=== PATIENT | male | born 1990 | race Caucasian/White ===

== ENCOUNTER 2019-06-21 08:23 | Inpatient (IN) | payer SELFPAY ==
[2019-06-21] VITALS (29 sets, daily range): BP systolic 101–143; BP diastolic 58–95
[~2019-06-21] VITALS: Ht 190.5 cm; Wt 72.6 kg
--- NOTE | 2019-06-21 08:29 | NUR ---
Ambulatory from registration to ED Rm 01. See nursing triage. Pt describing he feels he has "arrhythmia". Pt states he had this feeling before and Dr Edwards could not identify as unable to record via 24 hour Holter monitor. Pt denies use of recreational drugs. No alcohol reported today. Occasional beer is hx. Pt was asked further questions about stimulants, caffeine or any habits. Pt reports he drinks energy drink "Venom" on the days he works but none today. Significant other reports he pretty much drinks tea not plain water. No N/V reported. Pt has not ate today since arising. Pt has missed work.
--- NOTE | 2019-06-21 08:30 | NUR ---
EKG performed. Pt reports feeling heart pounding and irregular beats. Denies CP but feels weak, dizzy, and SOA upon entering ER after ambulation. EKG: Atrial Fib Rate 122.
--- OUTSIDE RECORDS SUMMARY | 2019-06-21 08:31 | XMS REPORT ---
Author Author JENNIFERTIMOTHY VERONICA [facility] Address Unknown Care Team Providers Care Energy Consultant Name Role Phone VERONICA KIMBALL Unavailable PROBLEMS Unknown Problems ALLERGIES No Known Allergies ENCOUNTERS Encounter Location Date Diagnosis [facility] [address] [id number] [place], [place] [id number] May, Dental examination Z01.20 and Dental caries K02.9 IMMUNIZATIONS No Known Immunizations SOCIAL HISTORY Never Assessed REASON FOR VISIT ABDULLAHI PLAN OF CARE Activity Details Follow Up prn Reason:viki VITAL SIGNS MEDICATIONS Unknown Medications RESULTS No Results PROCEDURES Procedure Date Ordered Result Body Site LTD ORAL EVALUATION - PROBLEM FOCUS June 11, 2018 INTRAORL-PERIAPICAL 1 FILM [id number] June 11, 2018 EXTRAC ERUPTED TOOTH/EXPOSED ROOT June 11, 2018 PANORAMIC FILM SEE ALSO CODE [id number] June 11, 2018 INSTRUCTIONS MEDICATIONS ADMINISTERED No Known Medications MEDICAL (GENERAL) HISTORY Type Description Date Medical History Heart Murmur
[2019-06-21] MEDS ORDERED: NS IV 1000 ML 1,000 ML ONE (08:52)
[2019-06-21] MEDS ORDERED: DILTIAZEM 25 MG/5 ML INJ (CARDIZEM) VIAL IVP ONE (09:00)
[2019-06-21] MEDS ORDERED: NS IV 1000 ML 1,000 ML IV SCH (09:00)
[2019-06-21] MEDS ORDERED: DILTIAZEM IV FOR DRIP 125 MG in NS (IVPB) 100 ML IV SCH (09:00)
--- NOTE | 2019-06-21 09:00 | NUR ---
Reported NIBP 101/73 with irregular A Fib rate 107-[address] Rico. Pt has not yet been given Cardizem bolus ordered.
--- NOTE | 2019-06-21 09:05 | NUR ---
NS [address] Rico ordered.
--- NOTE | 2019-06-21 09:10 | NUR ---
Cardizem 10 mg SIVP given as confirmed with Dr Rico. HR 111, NIBP 123/90.
--- NOTE | 2019-06-21 09:13 | Diagnostic Imaging Report ---
INDICATION: Shortness of breath and dizziness Frontal chest obtained at 8:42 a.m. Heart and mediastinal silhouette are normal in appearance. The lungs are clear. There is no pneumothorax or pleural fluid. IMPRESSION: No acute process in the chest. Dictated by: Dictated on workstation # [id number]
--- NOTE | 2019-06-21 09:14 | NUR ---
Cardizem drip began at 5mg/hr.
[2019-06-21 09:17] LABS: HEMATOCRIT 51 % (40-54); HEMOGLOBIN 18.3 G/DL (13.3-17.7); MEAN CORPUSCULAR HEMOGLOBIN 31 PG (25-34); WHITE BLOOD COUNT 8.7 10^3/uL (4.3-11.0)
[2019-06-21 09:18] LABS: MEAN CORPUSCULAR HGB CONC 36 G/DL (32-36); MEAN CORPUSCULAR VOLUME 87 FL (80-99); MEAN PLATELET VOLUME 10.2 FL (7.4-10.4); PLATELET COUNT 205 10^3/uL (130-400); RED CELL DISTRIBUTION WIDTH 12.7 % (10.0-14.5)
[2019-06-21 09:19] LABS: BAND NEUTROPHILS 1 %; BASOPHILS % (MANUAL) 0 %; EOSINOPHILS % (MANUAL) 1 %; LYMPHOCYTES % (MANUAL) 42 %; MONOCYTES % (MANUAL) 9 %; NEUTROPHILS % (MANUAL) 47 %
[2019-06-21 09:22] LABS: BUN/CREATININE RATIO 9; CALCIUM 9.8 MG/DL (8.5-10.1); CARBON DIOXIDE 24 MMOL/L (21-32); CHLORIDE 100 MMOL/L (98-107); CREATININE SERUM 1.13 MG/DL (0.60-1.30); GFR ESTIMATED > 60; GLUCOSE 101 MG/DL (70-105); MAGNESIUM 2.1 MG/DL (1.8-2.4); POTASSIUM 4.3 MMOL/L (3.6-5.0); SODIUM 139 MMOL/L (135-145)
[2019-06-21 09:23] LABS: ALANINE AMINOTRANSFERASE 19 U/L (0-55); ALBUMIN 4.7 GM/DL (3.2-4.5); ALKALINE PHOSPHATASE 82 U/L (40-136); TOTAL PROTEIN 7.7 GM/DL (6.4-8.2)
--- NOTE | 2019-06-21 09:25 | NUR ---
Pt unable to void lying down, assisted up at bedside to use urinal to void. During minimal bedside activity RN present and note patient increased A Fib rate up to 147 with minimal activity. Pt reports alittle dizzy with activity and feeling SOA.
--- NOTE | 2019-06-21 09:30 | NUR ---
Pt was assited back to bed after 3 minutes being up and immediate resting rate drops to A Fib rate 80's with trigeminal unifocal PVC's. NIBP 123/79
[2019-06-21 09:51] LABS: AMPHETAMINE SCREEN, URINE NEGATIVE (NEGATIVE); BARBITURATE SCREEN URINE NEGATIVE (NEGATIVE); BENZODIAZEPINES SCREEN URINE NEGATIVE (NEGATIVE); CANNABINOID SCREEN, URINE NEGATIVE (NEGATIVE); COCAINE SCREEN URINE NEGATIVE (NEGATIVE); METHADONE STAT NEGATIVE (NEGATIVE); METHAMPHETAMINE SCREEN URINE S NEGATIVE (NEGATIVE); OPIATE SCREEN URINE NEGATIVE (NEGATIVE); OXYCODONE STAT NEGATIVE (NEGATIVE); PROPOXYPHENE STAT NEGATIVE (NEGATIVE); TRICYCLIC ANTIDEPRESSANTS SCRE NEGATIVE (NEGATIVE)
--- NOTE | 2019-06-21 10:29 | ED Cardiac General ---
History of Present Illness General Chief Complaint: Cardiac/General Problems Stated Complaint: SOB; ARRHYTHMIA Nursing Triage Note: Pt ambulatory to ED reporting dizziness/weakness and heart arrhythmia. Pt denies CP but feels heart pounding in chest. Pt missed work today r/t to this. Pt hx of similar event but holter monitor did not identify cause for his PCP. Pt denies recreational drugs and an occas beer drank. Pt drinks "Venom" Energy drinks on days he works. Source: patient Exam Limitations: no limitations History of Present Illness Date Seen by Provider: Jun 21, 2019 Time Seen by Provider: 08:30 Initial Comments Patient is a 28-year-old male who presents with dizziness, generalized weakness, fatigue and palpitations. Symptom onset was this morning. Patient denies chest pain but feels pounding in his chest. Also reports mild dyspnea. No fever chills, cough, sore throat. No nausea, vomiting or abdominal pain. No leg pain or swelling. Patient states he has had similar episodes of dizziness with palpitations but has never sought medical care. No other acute symptoms or complaints. Denies drugs and alcohol. Timing/Duration: 1-3 hours Severity: moderate Prior CP/Workup: no prior chest pain Associated Systoms: Denies Symptoms, Weakness Allergies and Home Medications Allergies Coded Allergies: No Known Drug Allergies (Unverified , 06/21/19) Home Medications No Active Prescriptions or Reported Meds Patient Home Medication List Home Medication List Reviewed: Yes Review of Systems Review of Systems Constitutional: dizziness, weakness EENTM: No Symptoms Reported Respiratory: Shortness of Air Cardiovascular: Denies Chest Pain; Irregular Heart Rate, Palpitations Gastrointestinal: No Symptoms Reported, See HPI Genitourinary: No Symptoms Reported, See HPI Musculoskeletal: no symptoms reported, see HPI Skin: no symptoms reported, see HPI Psychiatric/Neurological: No Symptoms Reported, See HPI, Anxiety Endocrine: No Symptoms Reported Hematologic/Lymphatic: No Symptoms Reported All Other Systems Reviewed Negative Unless Noted: Yes Past Zenxdhs-Gbspyb-Xlahdz Hx Patient Social History Alcohol Use: Occasionally Uses Number of Drinks Today: 0 Alcohol Beverage of Choice: Beer Recreational Drug Use: No (denies) Smoking Status: Never a Smoker 2nd Hand Smoke Exposure: Yes (pt reeks of smoke odor denies being a smoker) Recent Foreign Travel: No Contact w/Someone Who Travel: No Recent Infectious Disease Expo: No Recent Hopitalizations: No Physical Abuse: No Sexual Abuse: No Mistreated: No Fear: No Seasonal Allergies Seasonal Allergies: No Past Medical History Surgeries: No Respiratory: No Cardiac: No (reports having had arrhythmia hx "heart pounding" in past) Irregular Heartbeat Neurological: No Genitourinary: No Gastrointestinal: No Musculoskeletal: No Endocrine: No HEENT: No Cancer: No Psychosocial: No (denies) Integumentary: No Blood Disorders: No Physical Exam Vital Signs Vital Signs - First Documented 06/21/19 08:29 Temp 98.2 Pulse 105 Resp 16 B/P (MAP) 123/85 (98) Pulse Ox 100 O2 Delivery Room Air Capillary Refill : Less Than 3 Seconds Height, Weight, BMI Height: 6'3.00" Weight: 160lbs. oz. 72.770948on; BMI Method:Stated General Appearance: No Apparent Distress, WD/WN HEENT: PERRL/EOMI, TMs Normal Neck: Supple Respiratory: Chest Non Tender, Lungs Clear, Normal Breath Sounds Cardiovascular: No Edema Gastrointestinal: Non Tender, Soft Neurologic/Psychiatric: Alert, Oriented x3, No Motor/Sensory Deficits Skin: Normal Color Focused Exam Sepsis Stage: Ruled Out Progress/Results/Core Measures Results/Orders Lab Results Laboratory Tests Test 06/21/19 08:40 06/21/19 09:25 Range/Units White Blood Count 8.7 4.3-11.0 10^3/uL Red Blood Count 5.89 H 4.35-5.85 10^6/uL Hemoglobin 18.3 H 13.3-17.7 G/DL Hematocrit 51 40-54 % Mean Corpuscular Volume 87 80-99 FL Mean Corpuscular Hemoglobin 31 25-34 PG Mean Corpuscular Hemoglobin Concent 36 32-36 G/DL Red Cell Distribution Width 12.7 10.0-14.5 % Platelet Count 205 130-400 10^3/uL Mean Platelet Volume 10.2 7.4-10.4 FL Neutrophils (%) (Auto) 42-75 % Lymphocytes (%) (Auto) 12-44 % Monocytes (%) (Auto) 0-12 % Eosinophils (%) (Auto) 0-10 % Basophils (%) (Auto) 0-10 % Neutrophils # (Auto) 1.8-7.8 X 10^3 Lymphocytes # (Auto) 1.0-4.0 X 10^3 Monocytes # (Auto) 0.0-1.0 X 10^3 Eosinophils # (Auto) 0.0-0.3 10^3/uL Basophils # (Auto) 0.0-0.1 10^3/uL Neutrophils % (Manual) 47 % Lymphocytes % (Manual) 42 % Monocytes % (Manual) 9 % Eosinophils % (Manual) 1 % Basophils % (Manual) 0 % Band Neutrophils 1 % Sodium Level 139 135-145 MMOL/L Potassium Level 4.3 3.6-5.0 MMOL/L Chloride Level 100 98-107 MMOL/L Carbon Dioxide Level 24 21-32 MMOL/L Anion Gap 15 H 5-14 MMOL/L Blood Urea Nitrogen 10 7-18 MG/DL Creatinine 1.13 0.60-1.30 MG/DL Estimat Glomerular Filtration Rate > 60 BUN/Creatinine Ratio 9 Glucose Level 101 70-105 MG/DL Calcium Level 9.8 8.5-10.1 MG/DL Corrected Calcium 8.5-10.1 MG/DL Magnesium Level 2.1 1.8-2.4 MG/DL Total Bilirubin 1.0 0.1-1.0 MG/DL Aspartate Amino Transf (AST/SGOT) 25 5-34 U/L Alanine Aminotransferase (ALT/SGPT) 19 0-55 U/L Alkaline Phosphatase 82 40-136 U/L Troponin I < 0.30 <0.30 NG/ML Pro-B-Type Natriuretic Peptide 215.0 H <75.0 PG/ML Total Protein 7.7 6.4-8.2 GM/DL Albumin 4.7 H 3.2-4.5 GM/DL Serum Alcohol < 10 <10 MG/DL Urine Opiates Screen NEGATIVE NEGATIVE Urine Oxycodone Screen NEGATIVE NEGATIVE Urine Methadone Screen NEGATIVE NEGATIVE Urine Propoxyphene Screen NEGATIVE NEGATIVE Urine Barbiturates Screen NEGATIVE NEGATIVE Ur Tricyclic Antidepressants Screen NEGATIVE NEGATIVE Urine Phencyclidine Screen NEGATIVE NEGATIVE Urine Amphetamines Screen NEGATIVE NEGATIVE Urine Methamphetamines Screen NEGATIVE NEGATIVE Urine Benzodiazepines Screen NEGATIVE NEGATIVE Urine Cocaine Screen NEGATIVE NEGATIVE Urine Cannabinoids Screen NEGATIVE NEGATIVE My Orders Orders - MARIA LUZ REYNOSO DO Cbc And Manual Diff (06/21/19 08:39) Comprehensive Metabolic Panel (06/21/19 08:39) Troponin I (06/21/19 08:39) Magnesium (06/21/19 08:39) Alcohol (06/21/19 08:39) Drug Screen Stat (Urine) (06/21/19 08:39) Probnp Fs (06/21/19 08:39) Chest 1 View Ap/Pa Only (06/21/19 08:39) Diltiazem Injection (Cardizem Injection) (06/21/19 09:00) Ns (Ivpb) (Sodium C... W/Diltiazem Iv Fo (06/21/19 09:00) Thyroid Stimulating Hormone (06/21/19 08:40) Ns Iv 1000 Ml (Sodium Chloride 0.9%) (06/21/19 09:00) Ns Iv 1000 Ml (Sodium Chloride 0.9%) (06/21/19 08:52) Amiodarone For Bolus (Cordarone Bolus) (06/21/19 10:30) Amiodarone Injection (Cordarone Injectio (06/21/19 10:30) Apixaban Tablet (Eliquis Tablet) (06/21/19 10:30) Medications Given in ED Current Medications Medications Dose Ordered Sig/Malcolm Route Start Time Stop Time Status Last Admin Dose Admin Diltiazem HCl 10 mg ONCE ONCE IVP 06/21/19 09:00 06/21/19 09:01 DC 06/21/19 09:10 10 MG Vital Signs/I&O 06/21/19 06/21/19 08:29 09:14 Temp 98.2 98.2 Pulse 105 108 Resp 16 18 B/P (MAP) 123/85 (98) 123/85 Pulse Ox 100 100 O2 Delivery Room Air Room Air Blood Pressure Mean: 98 Departure Communication (Admissions) Time/Spoke to Admitting Phy: 10:37 Dr. Sandra Impression Primary Impression: Atrial fibrillation Disposition: 09 ADMITTED INPATIENT Condition: Stable Admissions Decision to Admit Reason: Admit from ER (General) Decision to Admit/Date: Jun 21, 2019 Time/Decision to Admit Time: 10:00 Transfer Time Spoke to Accepting Phy: 10:15 Departure-Patient Inst. Referrals: NO,LOCAL PHYSICIAN (PCP/Family) Primary Care Physician Patient Instructions: Palpitations (DC), Atrial Fibrillation (DC) Scripts No Active Prescriptions or Reported Meds MARIA LUZ REYNOSO DO Jun 21, 2019 10:29
[2019-06-21] MEDS ORDERED: AMIODARONE FOR BOLUS 150 MG in D5W 100 ML IVPB 100 ML IV ONE (10:30)
[2019-06-21] MEDS ORDERED: APIXABAN 5 MG (ELIQUIS) TABLET PO ONE (10:30)
--- NOTE | 2019-06-21 10:35 | NUR ---
Stopped/held Cardizem. New order rec'd. HR A Fib 90's, ocas to upper 80's. NIBP 118/81.
--- NOTE | 2019-06-21 10:38 | NUR ---
Amiodarone 150 mg/D5W 100 ml bolus began per Malone pump at 600 ml/hr as per protocol per verbal order Dr Rico.
--- NOTE | 2019-06-21 10:39 | NUR ---
JUSTIN, [employer] CALLED FOR BED REQUEST AT THIS TIME.
--- NOTE | 2019-06-21 10:48 | NUR ---
Amiodarone bolus is completed. Pt HR mid 80's. Pt remains normotensive.
[2019-06-21] MEDS: AMIODARONE INJECTION 450 MG in D5W IV SOLUTION (EXCEL) 250 ML IV SCH ×2 (10:50→17:05)
--- NOTE | 2019-06-21 10:50 | NUR ---
Amiodarone drip began per protocol starting 33 ml/hr for first 8 hrs.
--- NOTE | 2019-06-21 10:59 | NUR ---
Room number obtained. CU 9
--- NOTE | 2019-06-21 11:05 | NUR ---
Attempt to call report and RN is busy, request return call to this RN.
--- NOTE | 2019-06-21 11:20 | NUR ---
Report called to Akosua [place] at [facility] ICU. [facility] is arriving.
--- NOTE | 2019-06-21 11:30 | NUR ---
Pt departing from [facility]- ER at this time on Amiodarone drip infusing at 33 ml/hr without difficulty (24 ml infused). Cardizem drip bag off and given to [facility] for transport. Pt resting HR is low 70's now. No verbalized c/o's except hunger but patient remains NPO. Cardiac monitoring was resumed with EMS ACLS crew.
[2019-06-21] MEDS ORDERED: CATHETER FLUSH 10 ML SYR IV PRN (12:30)
[2019-06-21] MEDS ORDERED: D5W 1000 ML IV SOLUTION 1,000 ML IV SCH (12:30)
--- NOTE | 2019-06-21 14:15 | Consultation-Cardiology ---
HPI-Cardiology Cardiology Consultation: Date of Consultation 06/21/19 Date of Admission Attending Physician Gail Sandra MD Admitting Physician No,Local Physician Consulting Physician Zak ELIZABETH MD HPI: Time Seen by a Provider: 12:00 Chief Complaint: Atrial fibrillation with rapid ventricular rate. This is a 28-year-old gentleman with no past cardiac history. He does tells me that he's had a regular heart beating in the past. He presented with dizziness, weakness and palpitations. Symptoms started this morning. He presented to the [place] ER and was found to be in atrial fibrillation with rapid ventricular rate. The patient denies any significant medical history. He denies use of any street drugs. He does except that he drinks a lot of energy drinks. He does not know of his family history. He does not smoke. Review of Systems-Cardiology Review of Systems Constitutional: As described under HPI; No As described under HPI, No no symptoms reported, No chills, No fever; lightheadedness Eyes: No As described under HPI, No no symptoms reported, No blindness, No blurred vision, No contact lenses, No drainage, No decreased acuity, No foreign body sensation, No pain, No vision change Ears/Nose/Throat: No As described under HPI, No no symptoms reported, No chronic hearing loss, No ear discharge, No ear pain, No nasal drainage, No ulcerations Respiratory: No no symptoms reported; As described under HPI; No As described under HPI, No cough, No orthopnea; shortness of breath; No SOB with excertion Cardiovascular: No no symptoms reported; As described under HPI; No As described under HPI, No chest pain, No edema, No irregular heart rate, No lightheadedness; palpitations Gastrointestinal: No no symptoms reported, No As described under HPI, No abdomen distended, No abdominal pain, No blood streaked bowels, No constipation, No diarrhea, No nausea, No vomiting, No stool coloration changes Genitourinary: No As described under HPI, No burning, No dysuria, No discharge, No frequency, No flank pain, No hematuria, No urgency Skin: No rash, No skin related problems, No ulcerations Psychiatric/Neurological: No anxiety, No depression, No seizure, No focal weakness, No syncope Hematologic: No bleeding abnormalities All Other Systems Reviewed Negative Unless Noted: Yes MZY-Thaoae-Viiptx Hx Patient Social History Alcohol Use: Occasionally Uses Recreational Drug Use: No (denies) Smoking Status: Never a Smoker 2nd Hand Smoke Exposure: Yes (pt reeks of smoke odor denies being a smoker) Recent Foreign Travel: No Recent Infectious Disease Expo: No Past Medical History PMH As described under Assessment. Allergies and Home Medications Allergies Coded Allergies: No Known Drug Allergies (Unverified , 06/21/19) Home Medications No Active Prescriptions or Reported Meds Patient Home Medication List Home Medication List Reviewed: Yes Physical Exam-Cardiology Physical Exam Vital Signs/I&O 06/21/19 06/21/19 06/21/19 06/21/19 09:00 09:08 09:10 09:12 Pulse 107 86 98 107 Resp 14 20 15 18 B/P (MAP) 101/73 (82) 126/76 (93) 123/90 (101) 102/75 (84) Pulse Ox 100 100 100 100 O2 Delivery Room Air Room Air Room Air Room Air 06/21/19 06/21/19 06/21/19 06/21/19 09:14 09:27 09:30 09:45 Temp 98.2 Pulse 108 147 118 80 Resp 18 22 14 15 B/P (MAP) 123/85 101/70 (80) 123/79 (94) 124/76 (92) Pulse Ox 100 100 100 100 O2 Delivery Room Air Room Air Room Air Room Air 06/21/19 06/21/19 06/21/19 06/21/19 10:00 10:30 11:00 11:30 Temp 98.0 Pulse 77 92 73 74 Resp 14 13 17 15 B/P (MAP) 125/83 (97) 118/81 (93) 117/85 (96) 128/83 (98) Pulse Ox 100 100 100 100 O2 Delivery Room Air Room Air Room Air Room Air 06/21/19 06/21/19 06/21/19 06/21/19 11:30 12:25 12:30 12:30 Temp 98.0 Pulse 74 74 75 75 Resp 15 10 10 B/P (MAP) 128/83 (98) 131/95 (107) 131/95 (107) Pulse Ox 100 99 99 O2 Delivery Room Air Room Air Room Air 06/21/19 06/21/19 06/21/19 06/21/19 12:45 12:45 13:00 13:15 Pulse 79 79 80 80 Resp 14 14 8 8 B/P (MAP) 119/95 (103) 121/84 (96) 112/73 (86) 116/84 (95) Pulse Ox 100 100 99 100 O2 Delivery Room Air Room Air Room Air Room Air 06/21/19 06/21/19 06/21/19 06/21/19 13:30 13:47 14:00 14:30 Pulse 74 96 102 Resp 16 12 8 B/P (MAP) 129/84 (99) 135/93 (107) 143/93 (110) Pulse Ox 99 100 99 O2 Delivery Room Air Room Air Room Air Room Air 06/21/19 06/21/19 06/21/19 06/21/19 15:00 16:00 16:00 16:05 Temp 98.0 Pulse 97 92 56 Resp 35 20 B/P (MAP) 129/78 (95) 122/80 (94) Pulse Ox 100 99 O2 Delivery Room Air Room Air 06/21/19 06/21/19 06/21/19 16:19 17:00 18:00 Pulse 51 50 Resp 17 21 B/P (MAP) 113/74 (87) 120/79 (93) Pulse Ox 99 100 O2 Delivery Room Air Room Air Room Air Capillary Refill : Less Than 3 Seconds Constitutional: appears stated age, AAO x 3; No apparent distress; well- developed, well-nourished HEENT: PERRL; No normal ENT inspection, No TMs normal, No pharynx normal, No scleral icterus (R), No scleral icterus (L), No pale conjunctivae (R), No pale conjunctivae (L), No photophobia, No TM abnormal (R), No TM abnormal (L), No pharyngeal erythema, No tonsillar exudate, No other, No discharge, No EOMI; hearing is well preserved; No hard of hearing; oral hygience is good; No ulceration, No xanthelasmas are seen Neck: No non-tender, No full range of motion, No supple, No normal inspection, No carotid bruit, No limited range of motion, No lymphadenopathy (R), No lymphadenopathy (L), No tender lateral, No tender midline, No thyromegaly, No other; carotid pulses are 2 + bilaterally; No with good upstrokes Respiratory: No accessory muscle use, No respiratory distress, No chest tender, No chest expansion is symmetric; chest is bilaterally symmetric; No lungs clear to percussion; lungs clear to auscultation; No crackles, No rhonchi, No rales, No stridor, No wheezing, No pleural rub, No other Cardiovascular: No regular rate-rhythm; irregularly irregular; No extra beats, No parasternal heave is noted, No JVD, No edema, No bradycardia; tachycardia; No point of maximal impulse, No cardiac thrills are palpable; S1 and S2; No ga llop/S3, No gallop/S4, No diastolic murmur, No systolic murmur, No friction rub, No click, No other Gastrointestinal: No tender, No soft, No round, No distended, No pulsatile mass, No organomegaly, No guarding, No rebound, No tenderness, No hernia, No mass, No audible bowel sounds, No abnormal bowel sounds, No abdominal bruits, No spleenomegaly, No other Rectal: deferred Extremities: No normal range of motion, No non-tender, No normal inspection, No pedal edema, No calf tenderness, No normal capillary refill, No pelvis stable, No calf tenderness, No inflammation, No pedal edema, No slow capillary refill, No swelling, No other, No abrasion, No clubbing, No cyanosis, No ecchymosis, No laceration, No no lower extremity edema bilateral, No significant edema, No tenderness, No wound Neurologic/Psychiatric: no motor/sensory deficits, alert, normal mood/affect, oriented x 3, power is 5/5 both on sides Skin: No normal color, No warm/dry, No cyanosis, No cool, No diaphoresis, No damp, No ecchymosis, No jaundice, No mottled, No pallor, No rash, No tattoos/piercings, No ulcerations, No rash on exposed areas, No ulcerations on exposed areas, No other Data Review Labs Laboratory Tests 06/21/19 08:40: White Blood Count 8.7, Red Blood Count 5.89H, Hemoglobin 18.3H, Hematocrit 51, Mean Corpuscular Volume 87, Mean Corpuscular Hemoglobin 31, Mean Corpuscular Hemoglobin Concent 36, Red Cell Distribution Width 12.7, Platelet Count 205, Mean Platelet Volume 10.2, Neutrophils (%) (Auto) , Lymphocytes (%) (Auto) , Monocytes (%) (Auto) , Eosinophils (%) (Auto) , Basophils (%) (Auto) , Neutrop hils # (Auto) , Lymphocytes # (Auto) , Monocytes # (Auto) , Eosinophils # (Auto) , Basophils # (Auto) , Neutrophils % (Manual) 47, Lymphocytes % (Manual) 42, Monocytes % (Manual) 9, Eosinophils % (Manual) 1, Basophils % (Manual) 0, Band Neutrophils 1, Sodium Level 139, Potassium Level 4.3, Chloride Level 100, Carbon Dioxide Level 24, Anion Gap 15H, Blood Urea Nitrogen 10, Creatinine 1.13, Estimat Glomerular Filtration Rate > 60, BUN/Creatinine Ratio 9, Glucose Level 101, Calcium Level 9.8, Corrected Calcium , Magnesium Level 2.1, Total Bilirubin 1.0, Aspartate Amino Transf (AST/SGOT) 25, Alanine Aminotransferase (ALT/SGPT) 19, Alkaline Phosphatase 82, Troponin I < 0.30, Pro-B-Type Natriuretic Peptide 215.0H, Total Protein 7.7, Albumin 4.7H, Thyroid Stimulating Hormone (TSH) 1.10, Serum Alcohol < 10 06/21/19 09:25: Urine Opiates Screen NEGATIVE, Urine Oxycodone Screen NEGATIVE, Urine Methadone Screen NEGATIVE, Urine Propoxyphene Screen NEGATIVE, Urine Barbiturates Screen NEGATIVE, Ur Tricyclic Antidepressants Screen NEGATIVE, Urine Phencyclidine Screen NEGATIVE, Urine Amphetamines Screen NEGATIVE, Urine Methamphetamines Screen NEGATIVE, Urine Benzodiazepines Screen NEGATIVE, Urine Cocaine Screen NEGATIVE, Urine Cannabinoids Screen NEGATIVE ECG Impression ECG Initial ECG Impression: Atrial Fibrillation w/RVR A/P-Cardiology Assessment/Admission Diagnosis Atrial fibrillation with rapid ventricular rate Plan IV amiodarone, oral anticoagulation with Eliquis. Cardizem infusion was started previously however the patient heart rate improved and therefore we will switch to by mouth Cardizem. Echocardiogram. If the patient does not convert till tomorrow morning we will consider transesophageal echocardiogram assisted cardioversion. Thank you for your consultation. Please call me if you have any questions. Johnna Elizabeth MD, FACP, FACC, FSCAI, FHRS, CCDS Interventional Cardiology Cardiac Electrophysiology Vascular Medicine and Endovascular Interventions Clinical Quality Measures DVT/VTE Risk/Contraindication: RFS Level Per Nursing on Admit: 0=No Risk/No VTE PPX Zak ELIZABETH MD Jun 21, 2019 14:15
--- NOTE | 2019-06-21 14:40 | History & Physical-Hospitalist ---
History of Present Illness HPI/Chief Complaint Pt is [id number] with no known medical history of who presented to the ER with CC of weakness and collapsing. He states that it has been going on for his entire life and has worn a holter monitor as ordered by Dr Edwards in the past but did not show anything. He was supposed to wear an event monitor at that time but decided not to do it. Over the past few weeks his symptoms have been getting worse and he has also developed chest pain but he states "I thought that was just me." He also drinks ~5 energy drinks per day. His palpitations worsened last night and he is normally able to sleep them off but he awoke with them so decided to seek care in the ER. He was found to be in a-fib with RVR in the ER and is admitted here for further evaluation and higher level of care with cardiology and amiodarone gtt. Source: patient Exam Limitations: no limitations Date Seen 06/21/19 Time Seen by a Provider: 14:40 Attending Physician Griffin Sandra MD PCP No,Local Physician Referring Physician Date of Admission Jun 21, 2019 at 10:59 am Home Medications & Allergies Home Medications Reviewed patient Home Medication Reconciliation performed by pharmacy medication reconciliations nail technician teacher and/or nursing. Patients Allergies have been reviewed. Allergies Allergies Coded Allergies No Known Drug Allergies (Unverified06/21/19) Past Prgufrl-Vgchka-Cvinww Hx Past Med/Social Hx: Reviewed Nursing Past Med/Soc Hx Patient Social History Marrital Status: Employed/Student: employed Alcohol Use: Occasionally Uses Number of Drinks Today: 0 Alcohol Beverage of Choice: Beer Recreational Drug Use: No Smoking Status: Never a Smoker 2nd Hand Smoke Exposure: Yes (pt reeks of smoke odor denies being a smoker) Recent Foreign Travel: No Contact w/other who traveled: No Recent Hopitalizations: No Recent Infectious Disease Expo: No Seasonal Allergies Seasonal Allergies: No Past Medical History Cardiac: Irregular Heartbeat, Palpitations History of Blood Disorders: No Family History Reviewed Nursing Family Hx No Pertinent Family Hx Review of Systems Constitutional: No chills, No fever EENTM: No blurred vision, No double vision, No nose congestion, No throat pain Respiratory: No cough, No dyspnea on exertion, No short of breath Cardiovascular: chest pain; No edema; palpitations Gastrointestinal: No abdominal pain, No constipation, No diarrhea, No nausea, No vomiting Genitourinary: No dysuria, No frequency Musculoskeletal: No joint pain, No muscle pain Skin: No lesions, No rash Psychiatric/Neurological: Denies Headache, Denies Numbness, Denies Tingling Physical Exam Physical Exam Vital Signs Vital Signs - First Documented Capillary Refill : Less Than 3 Seconds Height, Weight, BMI Height: 6'3.00" Weight: 160lbs. 0.0oz. [id number]; 20.0 BMI Method:Stated General Appearance: No Apparent Distress, WD/WN HEENT: Normal ENT Inspection, Moist Mucous Membranes; No Scleral Icterus (L), No Scleral Icterus (R) Neck: Normal Inspection, Supple; No Thyromegaly Respiratory: Lungs Clear, No Accessory Muscle Use, No Respiratory Distress Cardiovascular: No JVD, No Murmur, Irregularly Irregular, Tachycardia Gastrointestinal: Normal Bowel Sounds, Non Tender, Soft Extremity: Normal Capillary Refill, No Calf Tenderness, No Pedal Edema Neurologic/Psychiatric: Alert, Oriented x3 Skin: Normal Color, Warm/Dry Results Results/Procedures Labs Laboratory Tests 06/21/19 08:40 Patient resulted labs reviewed. Imaging: Reviewed Imaging Report Assessment/Plan Admission Diagnosis A-fib with RVR Admission Status: Inpatient Order (span 2 midnights) Reason for Inpatient Admission: icu level care, on amiodarone gtt, may need cardioversion Assessment and Plan A-fib with RVR Plan: Cardiology consulted Echo Continue amiodarone gtt May need cardioversion in the AM TSH pending Eliquis Diagnosis/Problems Diagnosis/Problems (1) Atrial fibrillation Status: Acute Qualifiers: Atrial fibrillation type: paroxysmal Qualified Codes: I48.0 - Paroxysmal atrial fibrillation Clinical Quality Measures DVT/VTE Risk/Contraindication: RFS Level Per Nursing on Admit: 0=No Risk/No VTE PPX GRIFFIN SANDRA MD Jun 21, 2019 14:39
--- NOTE | 2019-06-21 15:35 | NUR ---
Pt standing up to void et HR up to 150s. Dr. Elizabeth notified.
[2019-06-21] MEDS: DILTIAZEM 120 MG (CARDIZEM CD) CAP PO SCH (16:00)
--- NOTE | 2019-06-21 16:20 | NUR ---
Noted change in rhythm on front desk monitor. EKG obtained et sent to Dr. Elizabeth reading SB rate 56
[2019-06-21] MEDS ORDERED: IBUPROFEN 800 MG (MOTRIN) TAB PO ONE (21:30)
[2019-06-21] MEDS: APIXABAN 5 MG (ELIQUIS) TABLET PO SCH (21:37)
[2019-06-22] VITALS (16 sets, daily range): BP systolic 91–129; BP diastolic 50–87
[2019-06-22 03:22] LABS: BASOPHILS % (AUTO) 0 % (0-10); EOSINOPHILS # (AUTO) 0.2 10^3/uL (0.0-0.3); EOSINOPHILS % (AUTO) 3 % (0-10); HEMATOCRIT 44 % (40-54); HEMOGLOBIN 15.6 G/DL (13.3-17.7); LYMPHOCYTES # (AUTO) 2.8 X 10^3 (1.0-4.0); LYMPHOCYTES % (AUTO) 36 % (12-44); MEAN CORPUSCULAR HEMOGLOBIN 31 PG (25-34); MEAN CORPUSCULAR HGB CONC 35 G/DL (32-36); MEAN CORPUSCULAR VOLUME 87 FL (80-99); MEAN PLATELET VOLUME 10.7 FL (7.4-10.4); MONOCYTES # (AUTO) 0.7 X 10^3 (0.0-1.0); MONOCYTES % (AUTO) 9 % (0-12); NEUTROPHILS # (AUTO) 3.9 X 10^3 (1.8-7.8); NEUTROPHILS % (AUTO) 52 % (42-75); PLATELET COUNT 165 10^3/uL (130-400); RED CELL DISTRIBUTION WIDTH 13.1 % (10.0-14.5); WHITE BLOOD COUNT 7.6 10^3/uL (4.3-11.0)
[2019-06-22 03:39] LABS: BUN/CREATININE RATIO 11; CALCIUM 9.3 MG/DL (8.5-10.1); CARBON DIOXIDE 23 MMOL/L (21-32); CHLORIDE 104 MMOL/L (98-107); CREATININE SERUM 1.09 MG/DL (0.60-1.30); GFR ESTIMATED > 60; GLUCOSE 100 MG/DL (70-105); MAGNESIUM 2.2 MG/DL (1.8-2.4); PHOSPHORUS 4.1 MG/DL (2.3-4.7); POTASSIUM 4.8 MMOL/L (3.6-5.0); SODIUM 136 MMOL/L (135-145)
[2019-06-22] MEDS: DILTIAZEM 120 MG (CARDIZEM CD) CAP PO SCH (08:42)
[2019-06-22] MEDS: APIXABAN 5 MG (ELIQUIS) TABLET PO SCH (08:42)
[2019-06-22] MEDS ORDERED: ACETAMINOPHEN 325 MG TABLET ONE (10:09)
[2019-06-22] MEDS ORDERED: ANTACID SUSP 30 ML UDC (MYLANTA) PO PRN (10:15)
[2019-06-22] MEDS ORDERED: MILK OF MAGNESIA 400 MG/5 ML 30 ML UDC PO PRN (10:15)
[2019-06-22] MEDS ORDERED: ONDANSETRON 4 MG/2 ML (SDV) Z0FRAN IV PRN (10:15)
[2019-06-22] MEDS ORDERED: ACETAMINOPHEN 325 MG TABLET PO PRN (10:15)
[2019-06-22] MEDS ORDERED: ASPI-808 PO (14:35)
--- NOTE | 2019-06-22 14:57 | Discharge Summary ---
MAXWELL METZ, 06/22/19 1457: Diagnosis/Chief Complaint Date of Admission Jun 21, 2019 at 10:59 Date of Discharge Jun 22, 2019 Discharge Date: Jun 22, [address] Elizabeth, Cardiology was consulted. Discharge Physical Examination Allergies: Coded Allergies: No Known Drug Allergies (Unverified , 06/21/19) Vitals & I&Os Vital Signs Date Time Temp Pulse Resp B/P (MAP) Pulse Ox O2 Delivery O2 Flow Rate FiO2 06/22/19 15:21 43 19 104/64 99 Room Air 06/22/19 12:00 97.3 General Appearance: Alert, Oriented X3 HEENT: Atraumatic Respiratory: Clear to Auscultation Cardiovascular: Regular Rate Extremities: Other (+5/5 strength bilateral UE and applied researcher) Skin: Other (has allergic dermatitis, but otherwise normal) Hospital Course Was the Problem List Reviewed?: Yes Pt admitted from [facility] ER. Sent to ICU for care. Echo performed and read by Dr. Elizabeth. Results were normal. Discharged on aspirin 325 mg daily. Event monitor will be utilized. F/u in [address] Elizabeth. Labs Elevated pro-BNP and albumin. Normal TSH at 1.1 CBC and CMP unremarkable. Radiology Reviewed Echo normal. EKG demonstrated a-fib with RVR. Discussion & Recommendations Echo performed and read by Dr. Elizabeth as normal. Aspirin 325mg daily. Event monitor to be worn. F/u with Dr. Elizabeth in 6 weeks. Discharge Instructions to patient/family Please see electronic discharge instructions given to patient. Discharge Medications Reviewed and agree with Discharge Medication list on patient's Discharge Instruction sheet HPI General Chief Complaint: Cardiac/General Problems Stated Complaint: A-FIB & RVR Nursing Triage Note: Pt ambulatory to ED reporting dizziness/weakness and heart arrhythmia. Pt denies CP but feels heart pounding in chest. Pt missed work today r/t to this. Pt hx of similar event but holter monitor did not identify cause for his PCP. Pt denies recreational drugs and an occas beer drank. Pt drinks "Venom" Energy drinks on days he works. Source of Information: Patient History of Present Illness Date Seen by Provider: Jun 22, 2019 Time Seen by Provider: 07:00 Initial Comments CC: weakness and irregular rhythm HPI: This 28 y.o WM presents to [facility] for weakness and irregular rhythm. Transferred to [facility] ER. This began 2 nights ago, but has had rhythm problems for as long as he can remember. Mcgrath the irregular rhythm ("fast and weak, slow and strong"). Complains of SOB, chest pain over left pec, no radiation of pain into neck/arm. Feels like he "got punched". Usually can sleep off pain and rhythm changes, but the rhythm problems did not stop. Did help with chest pain. He had a previous heart monitor through Dr. Edwards, but there were no results. He had 3 energy drinks plus pop on the day of his irregular rhythm. Timing/Duration: 1 Day Modifying Factors: improves with Immobilization Associated Systoms: Chest Pain; No Nausea/Vomiting PMHx: none PSHx: none Allergies: NKDA Home Medications: Ibuprofen 200mg Q6h PRN Soc Hx: occasional EtOH (no more than 1x/day), does not smoke or use illicit drugs, job at [employer] in [facility] Fam Hx: mother has heart disease, someone else in his family collapsed and but is unsure of exact information regarding this incident Assessment: 1. A-fib with RVR per EKG 2. Chest pain Plan: 1. Continue Amiodarone drip + ICU meds 2. Cardiology consult 3. Repeat EKG if needed 4. Perform echo 5. CXR Clinical Quality Measures DVT/VTE Risk/Contraindication: RFS Level Per Nursing on Admit: 0=No Risk/No VTE PPX Diagnosis/Problems Diagnosis/Problems (1) Atrial fibrillation Status: Acute Qualifiers: Qualified Codes: I48.0 - Paroxysmal atrial fibrillation FERNANDA MURILLO DO 06/23/19 2210: Diagnosis/Chief Complaint Discharge Diagnosis AF w/RVR Red Bull and Caffeine overuse Discharge Summary Discharge Physical Examination Allergies: Coded Allergies: No Known Drug Allergies (Unverified , 06/21/19) General Appearance: Alert, Oriented X3, Cooperative Respiratory: Clear to Auscultation, Normal Air Movement Cardiovascular: Regular Rate Hospital Course Was the Problem List Reviewed?: Yes Amiodarone drip returned AF w/RVR back to NSR and patient was stable at DC HPI General Chief Complaint: Cardiac/General Problems Stated Complaint: A-FIB & RVR Supervisory-Addendum Brief Verification & Attestation Time: Verification & Attestat.: 10:00 Participated in pt care: history Personally performed: exam Care discussed with: Medical Student Procedures: n/a Verification and Attestation of Medical Student E/M Service A medical student performed and documented this service in my presence. I reviewed and verified all information documented by the medical student and made modifications to such information, when appropriate. I personally performed the physical exam and medical decision making. Fernanda Murillo, Jun 23, 2019,22:11 MAXWELL METZ, Jun 22, 2019 14:57 FERNANDA MURILLO DO Jun 23, 2019 22:10
--- NOTE | 2019-06-22 23:45 | Cardiology Progress Note ---
Cardiology SOAP Progress Note Subjective: Converted to sinus rhythm overnight. No cardiac complaints. Objective: I&O/Vital Signs 06/22/19 06/22/19 06/22/19 06/22/19 12:43 13:00 14:00 15:21 Pulse 46 46 43 43 Resp B/P (MAP) 120/80 (93) 104/64 (77) 104/64 Pulse Ox 99 99 99 O2 Delivery Room Air Room Air Room Air 06/23/19 00:00 Intake Total 240 ml Output Total 325 ml Balance -85 ml Weight (Pounds): 160 Weight (Ounces): 0.0 Weight (Calculated Kilograms): [id number] Constitutional: appears stated age, AAO x 3; No apparent distress; well- developed, well-nourished Respiratory: No accessory muscle use, No respiratory distress, No chest tender, No chest expansion is symmetric; chest is bilaterally symmetric; No lungs clear to percussion; lungs clear to auscultation; No crackles, No rhonchi, No rales, No stridor, No wheezing, No pleural rub, No other Cardiovascular: regular rate-rhythm; No extra beats, No parasternal heave is noted, No JVD, No edema, No bradycardia, No point of maximal impulse, No cardiac thrills are palpable; S1 and S2; No gallop/S3, No gallop/S4, No diastolic murmur, No systolic murmur, No friction rub, No click, No other Gastrointestional: No tender, No soft, No round, No distended, No pulsatile mass, No organomegaly, No guarding, No rebound, No tenderness, No hernia, No mass, No audible bowel sounds, No abnormal bowel sounds, No abdominal bruits, No spleenomegaly, No other Extremities: No normal range of motion, No non-tender, No normal inspection, No pedal edema, No calf tenderness, No normal capillary refill, No pelvis stable, No calf tenderness, No inflammation, No pedal edema, No slow capillary refill, No swelling, No other, No abrasion, No clubbing, No cyanosis, No ecchymosis, No laceration, No no lower extremity edema bilateral, No significant edema, No tenderness, No wound Neurologic/Psychiatric: no motor/sensory deficits, alert, normal mood/affect, oriented x 3, power is 5/5 both on sides Skin: No normal color, No warm/dry, No cyanosis, No cool, No diaphoresis, No damp, No ecchymosis, No jaundice, No mottled, No pallor, No rash, No tattoos/piercings, No ulcerations, No rash on exposed areas, No ulcerations on exposed areas, No other Results/Procedures: Labs Laboratory Tests 06/22/19 03:10: White Blood Count 7.6, Red Blood Count 5.09, Hemoglobin 15.6, Hematocrit 44, Mean Corpuscular Volume 87, Mean Corpuscular Hemoglobin 31, Mean Corpuscular Hemoglobin Concent 35, Red Cell Distribution Width 13.1, Platelet Count 165, Mean Platelet Volume 10.7H, Neutrophils (%) (Auto) 52, Lymphocytes (%) (Auto) 36, Monocytes (%) (Auto) 9, Eosinophils (%) (Auto) 3, Basophils (%) (Auto) 0, Neutrophils # (Auto) 3.9, Lymphocytes # (Auto) 2.8, Monocytes # (Auto) 0.7, Eosinophils # (Auto) 0.2, Basophils # (Auto) 0.0, Sodium Level 136, Potassium Level 4.8, Chloride Level 104, Carbon Dioxide Level 23, Anion Gap 9, Blood Urea Nitrogen 12, Creatinine 1.09, Estimat Glomerular Filtration Rate > 60, BUN/Creatinine Ratio 11, Glucose Level 100, Calcium Level 9.3, Phosphorus Level 4.1, Magnesium Level 2.2 A/P: Assessment/Dx: Atrial fibrillation with rapid ventricular rate Plan: Patient converted to sinus rhythm on IV amiodarone. Amiodarone infusion completed. Cardizem infusion was stopped due to bradycardia. Echocardiogram showed normal LV function with no structural heart disease. Patient has CHADSVASC score of 0 therefore we will discontinue Eliquis and start on aspirin 325 daily. Event monitor for 30 days. Implantable loop recorder if long-term surveillance is required. Follow-up in 6 weeks. Thank you for your consultation. Please call me if you have any questions. Johnna Elizabeth MD, FACP, FACC, FSCAI, FHRS, CCDS Interventional Cardiology Cardiac Electrophysiology Vascular Medicine and Endovascular Interventions Zak ELIZABETH MD Jun 22, 2019 23:45
== END 2019-06-22 15:00 | disposition home or self-care (01) | DRG 310 ==
LOC: ER FS 08:26 → ICU 10:59
PROVIDERS: ADMIT Family Medicine; ATTEND Family Medicine
DX: I48.0 Paroxysmal atrial fibrillation (principal); R07.9 Chest pain, unspecified; L23.9 Allergic contact dermatitis, unspecified cause; F41.9 Anxiety disorder, unspecified
CPT/HCPCS: 36415; 71045; 80048; 80053; 80306; 80320; 83735; 83880; 84100; 84443; 84484; 85007; 85025; 85027; 87081; 93005; 93306; 96365; 96367

== ENCOUNTER 2019-06-28 12:51 | Outpatient (RCR) | payer MEDICAID, OTHER ==
[~2019-06-28 12:51] MED LIST: ASPI-808 PO
[2019-07-21] MEDS ORDERED: NS IV 1000 ML 1,000 ML ONE (12:28)
[2019-07-21] MEDS ORDERED: LIDOCAINE 1% INJ 20 ML 20 ML VIAL ONE ×2 (12:28)
[2019-07-21] MEDS ORDERED: HEParin (CATH LAB) 1,000 ML IV ONE (12:28)
[2019-07-21] MEDS ORDERED: AMIO100T4 PO (14:48)
[2019-07-22] MEDS ORDERED: CEPH-507 PO (10:09)
[2019-07-22] MEDS ORDERED: DILT120C82 PO (10:27)
== END 2019-09-26 | disposition home or self-care (01) ==
LOC: CARD 12:51
PROVIDERS: ATTEND Internal Medicine Interventional Cardiology
DX: I48.0 Paroxysmal atrial fibrillation (principal)

== ENCOUNTER 2019-07-08 08:05 | Emergency (ER) | payer OTHER ==
[~2019-07-08] VITALS: Ht 190.5 cm; Wt 72.6 kg
--- NOTE | 2019-07-08 08:20 | ED General ---
General Chief Complaint: Cardiac/General Problems Stated Complaint: CHEST PAIN History of Present Illness Date Seen by Provider: Jul 08, 2019 Time Seen by Provider: 09:39 Initial Comments Patient presenting to the emergency department for evaluation of palpitations weakness dizziness with a presyncopal episode as well. Patient said that he woke up around 6 and this morning he felt palpitations. Patient felt as if his heart was racing and he felt dizzy and weak however he still proceeded to go to work and felt as if he was going to pass out while he was lifting of boxes. Patient has history of atrial fibrillation that was an issue approximate 3 weeks ago where he was admitted to the hospital on June 21 discharge and next day and discharged on aspirin acidosis chads 2 score was 0. Patient says that he has intermittent episodes of chest pain as he did this morning when he was feeling the palpitations as well. Patient has an [employer] recording device present. I was able to contact the company and request the records. Patient is currently in no obvious distress with normal vital signs. Allergies and Home Medications Allergies Coded Allergies: No Known Drug Allergies (Unverified , 06/21/19) Home Medications Aspirin 325 Mg Tablet, 325 MG PO DAILY Prescribed by: EUSEBIO MURILLO on 06/22/19 2374 Patient Home Medication List Home Medication List Reviewed: Yes Review of Systems Review of Systems Constitutional: malaise, weakness EENTM: no symptoms reported Respiratory: no symptoms reported Cardiovascular: chest pain Gastrointestinal: no symptoms reported Genitourinary: no symptoms reported Musculoskeletal: no symptoms reported Skin: no symptoms reported Psychiatric/Neurological: Weakness All Other Systems Reviewed Negative Unless Noted: Yes Past Seuqcrw-Kltwtg-Vjpcjw Hx Patient Social History Alcohol Beverage of Choice: Beer 2nd Hand Smoke Exposure: Yes (pt reeks of smoke odor denies being a smoker) Recent Hopitalizations: No Seasonal Allergies Seasonal Allergies: No Past Medical History Surgeries: No Respiratory: No Cardiac: No (reports having had arrhythmia hx "heart pounding" in past) Irregular Heartbeat, Palpitations Neurological: No Genitourinary: No Gastrointestinal: No Musculoskeletal: No Endocrine: No HEENT: No Cancer: No Psychosocial: No (denies) Integumentary: No Blood Disorders: No Family Medical History No Pertinent Family Hx Physical Exam Vital Signs Vital Signs - First Documented 07/08/19 08:08 Temp 97.7 Pulse 66 Resp 22 B/P (MAP) 121/67 (85) Pulse Ox 99 O2 Delivery Room Air Capillary Refill : Height, Weight, BMI Height: 6'3.00" Weight: 160lbs. 0.0oz. 72.538787bg; 20.0 BMI Method:Stated General Appearance: No Apparent Distress, WD/WN HEENT: PERRL/EOMI Neck: Supple Respiratory: Lungs Clear, Normal Breath Sounds, No Respiratory Distress Cardiovascular: Regular Rate, Rhythm Gastrointestinal: Non Tender, Soft Back: Normal Inspection Extremity: Normal Capillary Refill Neurologic/Psychiatric: Alert, Oriented x3 Skin: Normal Color, Warm/Dry Progress/Results/Core Measures Suspected Sepsis SIRS Temperature: Pulse: Respiratory Rate: Laboratory Tests 07/08/19 08:15: White Blood Count 6.3 Blood Pressure / Mean: Laboratory Tests 07/08/19 08:15: Creatinine 1.02, Platelet Count 179, Total Bilirubin 1.0 Results/Orders Lab Results Laboratory Tests Test 07/08/19 08:15 Range/Units White Blood Count 6.3 4.3-11.0 10^3/uL Red Blood Count 5.31 4.35-5.85 10^6/uL Hemoglobin 16.3 13.3-17.7 G/DL Hematocrit 46 40-54 % Mean Corpuscular Volume 86 80-99 FL Mean Corpuscular Hemoglobin 31 25-34 PG Mean Corpuscular Hemoglobin Concent 36 32-36 G/DL Red Cell Distribution Width 12.3 10.0-14.5 % Platelet Count 179 130-400 10^3/uL Mean Platelet Volume 10.4 7.4-10.4 FL Neutrophils (%) (Auto) 49 42-75 % Lymphocytes (%) (Auto) 41 12-44 % Monocytes (%) (Auto) 7 0-12 % Eosinophils (%) (Auto) 2 0-10 % Basophils (%) (Auto) 1 0-10 % Neutrophils # (Auto) 3.1 1.8-7.8 X 10^3 Lymphocytes # (Auto) 2.6 1.0-4.0 X 10^3 Monocytes # (Auto) 0.5 0.0-1.0 X 10^3 Eosinophils # (Auto) 0.1 0.0-0.3 10^3/uL Basophils # (Auto) 0.0 0.0-0.1 10^3/uL Sodium Level 138 135-145 MMOL/L Potassium Level 3.7 3.6-5.0 MMOL/L Chloride Level 102 98-107 MMOL/L Carbon Dioxide Level 20 L 21-32 MMOL/L Anion Gap 16 H 5-14 MMOL/L Blood Urea Nitrogen 11 7-18 MG/DL Creatinine 1.02 0.60-1.30 MG/DL Estimat Glomerular Filtration Rate > 60 BUN/Creatinine Ratio 11 Glucose Level 124 H 70-105 MG/DL Calcium Level 9.7 8.5-10.1 MG/DL Corrected Calcium 9.4 8.5-10.1 MG/DL Magnesium Level 2.0 1.6-2.4 MG/DL Total Bilirubin 1.0 0.1-1.0 MG/DL Aspartate Amino Transf (AST/SGOT) 21 5-34 U/L Alanine Aminotransferase (ALT/SGPT) 15 0-55 U/L Alkaline Phosphatase 73 40-136 U/L Troponin I < 0.30 <0.30 NG/ML Pro-B-Type Natriuretic Peptide 72.5 <75.0 PG/ML Total Protein 7.0 6.4-8.2 GM/DL Albumin 4.4 3.2-4.5 GM/DL My Orders Orders - ENID ALBERT DO Cbc With Automated Diff (07/08/19 08:19) Comprehensive Metabolic Panel (07/08/19 08:19) Drug Screen Stat (Urine) (07/08/19 08:19) Magnesium (07/08/19 08:19) Probnp Fs (07/08/19 08:19) Troponin I (07/08/19 08:19) Ns Iv 1000 Ml (Sodium Chloride 0.9%) (07/08/19 08:30) Ns Iv 1000 Ml (Sodium Chloride 0.9%) (07/08/19 08:23) Vital Signs/I&O 07/08/19 08:08 Temp 97.7 Pulse 66 Resp 22 B/P (MAP) 121/67 (85) Pulse Ox 99 O2 Delivery Room Air Capillary Refill : Progress Note : Progress Note Patient is essentially symptom medicate here except for feeling weak and he has been up and back to the bathroom several times with no dizziness or syncopal or presyncopal sensation. Patient did have abnormal recording on his device this morning as it appears that he was in atrial fibrillation with RVR for at least 40 minutes as the first detected's episode was at 611 in the last detected episode was 651 and it appears that he was back in a sinus rhythm at 714. I spoke to Dr. Elizabeth about his presentation symptoms workup and device recording. He said the patient has classic tachybradycardia syndrome and should be on medication to control his heart rate however he gets too bradycardic at times which we can see on his device recording it does go down into the low 30s. He does not recommend starting any medication at this time but said that patient would need a pacemaker placed. This pacemaker is not an emergent procedure that needed to be done but said that he could see him on Thursday and make planning for pacemaker insertion. He said that anytime the patient is feeling ill with palpitations pain dizziness weakness or other concerns that he should come back to the emergency department immediately where he would require transfer to [place] for pacemaker insertion. I relayed this plan to the patient and he is quite apprehensive about getting a pacemaker and I told him he could discuss these concerns with his aircraft engine technician on Thursday but for now he could go home but he should take it easy with no exertion and continue his aspirin. He was told all return precautions including the ones that his aircraft engine technician told me. Mary gracia admits he feels better after IV fluids and would like to go home. He verbalized understanding of his findings on his workup and device recording and the anticipated treatment plan and all return precautions. Patient discharged in stable condition with normal vital signs. Departure Impression Primary Impression: Atrial fibrillation with RVR Additional Impressions: Weakness Pre-syncope Disposition: 01 HOME, SELF-CARE Condition: Stable Departure-Patient Inst. Referrals: NO,LOCAL PHYSICIAN (PCP/Family) Primary Care Physician Patient Instructions: Atrial Fibrillation (DC) Add. Discharge Instructions: All discharge instructions reviewed with patient and/or family. Voiced unde rstanding. Follow with Dr. Eilzabeth on Thursday Come back sooner with any new or worsening symptoms. Thank you! ENID ALBERT DO Jul 08, 2019 08:20
[2019-07-08] MEDS ORDERED: NS IV 1000 ML 1,000 ML ONE (08:23)
[2019-07-08 08:28] LABS: BASOPHILS % (AUTO) 1 % (0-10); EOSINOPHILS # (AUTO) 0.1 10^3/uL (0.0-0.3); EOSINOPHILS % (AUTO) 2 % (0-10); HEMATOCRIT 46 % (40-54); HEMOGLOBIN 16.3 G/DL (13.3-17.7); LYMPHOCYTES # (AUTO) 2.6 X 10^3 (1.0-4.0); LYMPHOCYTES % (AUTO) 41 % (12-44); MEAN CORPUSCULAR HEMOGLOBIN 31 PG (25-34); MEAN CORPUSCULAR HGB CONC 36 G/DL (32-36); MEAN CORPUSCULAR VOLUME 86 FL (80-99); MEAN PLATELET VOLUME 10.4 FL (7.4-10.4); MONOCYTES # (AUTO) 0.5 X 10^3 (0.0-1.0); MONOCYTES % (AUTO) 7 % (0-12); NEUTROPHILS # (AUTO) 3.1 X 10^3 (1.8-7.8); NEUTROPHILS % (AUTO) 49 % (42-75); PLATELET COUNT 179 10^3/uL (130-400); RED CELL DISTRIBUTION WIDTH 12.3 % (10.0-14.5); WHITE BLOOD COUNT 6.3 10^3/uL (4.3-11.0)
[2019-07-08] MEDS ORDERED: NS IV 1000 ML 1,000 ML IV SCH (08:30)
[2019-07-08 08:54] LABS: CHLORIDE 102 MMOL/L (98-107); POTASSIUM 3.7 MMOL/L (3.6-5.0); SODIUM 138 MMOL/L (135-145)
[2019-07-08 08:55] LABS: ALANINE AMINOTRANSFERASE 15 U/L (0-55); ALBUMIN 4.4 GM/DL (3.2-4.5); ALKALINE PHOSPHATASE 73 U/L (40-136); BUN/CREATININE RATIO 11; CALCIUM 9.7 MG/DL (8.5-10.1); CARBON DIOXIDE 20 MMOL/L (21-32); CREATININE SERUM 1.02 MG/DL (0.60-1.30); GFR ESTIMATED > 60; GLUCOSE 124 MG/DL (70-105)
[2019-07-08 10:01] VITALS: BP 120/65
== END 2019-07-08 10:01 | disposition home or self-care (01) ==
LOC: EDUNIT# 08:05 → ER FS 08:08
DX: I48.91 Unspecified atrial fibrillation (principal); R53.1 Weakness; R55 Syncope and collapse
CPT/HCPCS: 36415; 80053; 83735; 83880; 84484; 85025; 93005

== ENCOUNTER 2019-07-21 12:22 | Day surgery (SDC) | payer OTHER ==
[~2019-07-21] VITALS: Ht 190.5 cm; Wt 73.1 kg
[2019-07-21] VITALS (12 sets, daily range): BP systolic 101–125; BP diastolic 63–82
[2019-07-21] MEDS ORDERED: NS IV 1000 ML 1,000 ML IV ONE (12:46)
[2019-07-21] MEDS ORDERED: BACITRACIN INJECTION 50,000 UNIT, SODIUM CHLORIDE 0.9% IRRIGATIO 500 ML IR ONE ×2 (13:00)
[2019-07-21] MEDS ORDERED: ceFAZolin INJECTION 1,000 MG VIAL IV ONE (13:00)
[2019-07-21 13:01] LABS: MEAN PLATELET VOLUME 10.4 FL (7.4-10.4); RED CELL DISTRIBUTION WIDTH 12.8 % (10.0-14.5); WHITE BLOOD COUNT 6.6 10^3/uL (4.3-11.0)
[2019-07-21 13:19] LABS: ALANINE AMINOTRANSFERASE 11 U/L (0-55); ALBUMIN 4.2 GM/DL (3.2-4.5); ALKALINE PHOSPHATASE 77 U/L (40-136); BILIRUBIN,TOTAL 0.8 MG/DL (0.1-1.0); BUN/CREATININE RATIO 9; CALCIUM 9.3 MG/DL (8.5-10.1); CARBON DIOXIDE 23 MMOL/L (21-32); CHLORIDE 106 MMOL/L (98-107); CREATININE SERUM 1.12 MG/DL (0.60-1.30); GFR ESTIMATED > 60; GLUCOSE 88 MG/DL (70-105); POTASSIUM 4.6 MMOL/L (3.6-5.0); SODIUM 140 MMOL/L (135-145); TOTAL PROTEIN 6.9 GM/DL (6.4-8.2)
[2019-07-21 13:49] LABS: INR 1.1 (0.8-1.4); PROTHROMBIN TIME PATIENT 14.2 SEC (12.2-14.7)
[2019-07-21] MEDS ORDERED: ANCEF 2 GM/NS 50 ML IVPB IV ONE (14:00)
[2019-07-21] MEDS ORDERED: AMIO100T4 PO (14:48)
[2019-07-21] MEDS ORDERED: fentaNYL INJECTION 100 MCG/2 ML AMP ONE ×2 (15:15→15:54)
[2019-07-21] MEDS ORDERED: MIDAZOLAM 5 MG/5 ML (VERSED) VIAL ONE ×2 (15:15→15:46)
[2019-07-21] MEDS ORDERED: HYDROmorphone 2 MG/ML VIAL (DILAUDID) ONE (15:52)
[2019-07-21] MEDS ORDERED: NS IV 1000 ML 1,000 ML IV SCH (16:59)
--- NOTE | 2019-07-21 16:59 | Cardiac Procedure Note-CS/ASA ---
Pre-Procedure Note Pre-Op Procedure Note H&P Reviewed The H&P was reviewed, patient examined and no changes noted. Date H&P Reviewed: Jul 21, 2019 Time H&P Reviewed: 13:00 Conscious Sedation Pre-Proced Time 13:00 ASA Score 3 For ASA 3 and 4: Consider anesthesia and medical clearance. Also, for patients with a history of failed moderate sedation consider anesthesia. Airway Lungs Heart ASA score ASA 1: a normal healthy patient ASA 2: a patient with a mild systemic disease (mid diabetes, controlled hypertension, obesity ASA 3: a patient with a severe systemic disease that limits activity (angina, COPD, prior Myocardial infarction) ASA 4: a patient with an incapacitating disease that is a constant threat to life (CHF, renal failure) ASA 5: a moribund patient not expected to survive 24 hrs. (ruptured aneurysm) ASA 6: a declared brain- patient whose organs are being harvested. For emergent operations, add the letter E after the classification Mallampati Classification Grade 1 Sedation Plan Analgesia, Amnesia, Plan communicated to team members, Discussed options with patient/fam, Discussed risks with patient/fam The patient is an appropriate candidate to undergo the planned procedure, sedation, and anesthesia. The patient immediately re-assessed prior to indication. Zak DYER MD Jul 21, 2019 16:59
[2019-07-21] MEDS ORDERED: PATIENT MAY USE OWN MEDS, ALL PO SCH (17:00)
[2019-07-21] MEDS ORDERED: NEO/POLY/BAC (NEOSPORIN) OINT 15 GM TUBE ONE (17:05)
--- NOTE | 2019-07-21 17:08 | Permanent Pacemaker Implant ---
Dual Chamber Pacemaker Implant PROCEDURE PHYSICIAN: Johnna Elizabeth MD DUAL CHAMBER PACEMAKER IMPLANTATION: DATE OF PROCEDURE: 07/21/19 INDICATION: atrial fibrillation with rapid ventricular rate, severe symptomatic bradycardia with heart rates in the 30s, tachycardia bradycardia syndrome. PREOPERATIVE DIAGNOSIS: atrial fibrillation with rapid ventricular rate, severe symptomatic bradycardia with heart rates in the 30s, tachycardia bradycardia syndrome. POSTOPERATIVE DIAGNOSIS: successful right-sided dual-chamber permanent pacemaker implantation. HISTORY: this is a 28-year-old gentleman with complains of atrial fibrillation with rapid ventricular rate. He was complaining of palpitations, weakness, dizziness and near-syncope. He was found to be in atrial fibrillation with rapid ventricular rate as well as afterwards severe symptomatic bradycardia with heart rates in the 30s. He has typical tachycardia bradycardia syndrome. The patient is not on any AV nicko blocking agents. Extensive discussion with the patient and family.Dual-chamber permanent pacemaker was recommended. PROCEDURE PERFORMED: 1. Dual-chamber permanent pacemaker implantation. 2. Fluoroscopy. 3. Central venous access. ANESTHESIA: Local anesthesia, conscious sedation. COMPLICATIONS: None. ESTIMATED BLOOD LOSS:20 mL. SPECIMENS: None. ORAL ANTICOAGULATION: None. FLUOROSCOPY TIME: 12.8 minutes. FLUOROSCOPY DOSE: 56 mgy. CONTRAST DOSE: none. PROCEDURE DETAILS: The patient is a 28 male and after all of the patients questions were answered, the patient was brought to the EP Lab. The patient's left chest was prepped and draped in sterile fashion. A 2 inch horizontal incision was made 1 cm below the clavicle and dissection carried down to the pectoralis fascia. Using the modified Seldinger technique and under fluoroscopy guidance, the anterior aspect of the left axillary vein was accessed 2 times. The J wires were secured to the drapes with a mosquito clamp. A 7-Argentine sheath was introduced over one of the J-wires. The RV lead was then inserted. The RV lead was directed across the tricuspid valve to the apical septal portion of the right ventricle. The position was checked in IGNACIO and ROBLES views. The screw was deployed and the lead connected to the mainframe systems programmer. Close sensing and pacing thresholds were obtained. Diaphragmatic pacing was ruled out. The lead was secured with 2-0 silk ties to the underlying muscle and fascia. Next, a 7-Argentine sheath was introduced through the remaining J-wire. An atrial lead was then introduced and guided to the level of the right appendage. The screw was deployed and the lead was connected to the interrogator. Good sensing and pacing thresholds were obtained. Diaphragmatic pacing was ruled out. The leads were secured with 2-0 silk ties to the underlying muscle and fascia. The leads were connected to the device in a hermetic fashion. The device and leads were placed in the pocket. Aggressive irrigation with saline solution was done. The device was secured to the underlying muscle and fascia with a 2-0 silk tie. interrogation of the device revealed good integrity of all the leads and good connections. The wound was then closed using 2 layers. The first layer was interrupted 2-0 absorbable Vicryl suture. The last layer was a single subcuticular layer with 4- 0 Vicryl suture. Half inch Steri-Strips and a small dressing were then applied to the wound. The patient tolerated the procedure well and was returned to the recovery room in stable condition with stable vital signs. DEVICE INFORMATION: Biotronik Eluna 8 DR-T, ref 679403, serial number [id number]. RA LEAD: Solia S 53 Biotronik, reference number 416706, serial number [id number]. RV LEAD: Solia S 60 Biotronik, ref [id number], serial number [id number]. PER-OPERATIVE DEVICE INTERROGATION: right atrium: P-wave 4.2 mV, impedance 535 ohms, threshold 1.2 V at 0.4 ms. RV: R wave 10.4 mV, impedance 714 ohms, threshold 0.7 V at 0.4 ms. IMMEDIATE POSTOPERATIVE DEVICE INTERROGATION: right atrium: P-wave 2.9 mV, impedance 487 ohms, threshold 1.4 V at 0.4 ms, RV: R wave 8.7 mV, impedance 663 ohms, threshold 0.6 V at 0.4 ms. device set at DDD/CLS 62508, PAV 300 ms +110 ms, JOSE 300 ms +110 ms. PLAN: The patient transferred to the ICU. We will continue with two more doses of IV antibiotics. We will check a chest x-ray and interrogate the device in the morning. The patient will continue on oral antibiotics for 5 days. Johnna Elizabeth MD, RS, CCDS Cardiac Electrophysiology Zak ELIZABETH MD Jul 21, 2019 17:08
--- NOTE | 2019-07-21 18:00 | Diagnostic Imaging Report ---
INDICATION: Pacemaker placement. COMPARISON: 06/21/2019. FINDINGS: Right-sided percutaneous transvenous pacemaker has leads coursing into the right atrium and right ventricle with electrodes terminating in these regions. The generator pack is normal in appearance. No pleural effusion or pneumothorax. Lungs are clear. Stable cardiomediastinal silhouette. IMPRESSION: 1. No pneumothorax status post pacemaker placement. Dictated by: Dictated on workstation # [id number]
[2019-07-21] MEDS ORDERED: IBUPROFEN 800 MG (MOTRIN) TAB PO ONE (19:40)
[2019-07-21] MEDS ORDERED: IBUPROFEN 800 MG (MOTRIN) TAB PO PRN (20:00)
[2019-07-21] MEDS: ceFAZolin INJECTION 1,000 MG in WATER (STERILE) FOR INJECTION 10 ML IV SCH (21:48)
[2019-07-22] VITALS: BP 117/76
[2019-07-22] MEDS ORDERED: IBUPROFEN 800 MG (MOTRIN) TAB PO SCH
[2019-07-22] MEDS: HYDROcodone/APAP 5 MG/325 MG (LORTAB) TAB PO PRN ×2 (00:39→05:21)
[2019-07-22 04:00] VITALS: BP 126/59
[2019-07-22 04:14] LABS: HEMOGLOBIN 14.7 G/DL (13.3-17.7); MEAN PLATELET VOLUME 10.5 FL (7.4-10.4); RED CELL DISTRIBUTION WIDTH 12.7 % (10.0-14.5); WHITE BLOOD COUNT 6.9 10^3/uL (4.3-11.0)
[2019-07-22 04:35] LABS: ALANINE AMINOTRANSFERASE 10 U/L (0-55); ALBUMIN 3.7 GM/DL (3.2-4.5); ALKALINE PHOSPHATASE 63 U/L (40-136); BILIRUBIN,TOTAL 0.5 MG/DL (0.1-1.0); BUN/CREATININE RATIO 11; CALCIUM 8.6 MG/DL (8.5-10.1); CARBON DIOXIDE 19 MMOL/L (21-32); CHLORIDE 108 MMOL/L (98-107); CREATININE SERUM 1.08 MG/DL (0.60-1.30); GFR ESTIMATED > 60; GLUCOSE 116 MG/DL (70-105); POTASSIUM 4.2 MMOL/L (3.6-5.0); SODIUM 139 MMOL/L (135-145); TOTAL PROTEIN 6.1 GM/DL (6.4-8.2)
[2019-07-22] MEDS: ceFAZolin INJECTION 1,000 MG in WATER (STERILE) FOR INJECTION 10 ML IV SCH (05:20)
[2019-07-22 08:00] VITALS: BP 112/70
[2019-07-22] MEDS ORDERED: CEPH-507 PO (10:09)
[2019-07-22] MEDS ORDERED: DILT120C82 PO (10:27)
--- NOTE | 2019-07-22 11:31 | Cardiology Discharge Summary ---
Diagnosis/Chief Complaint Date of Admission 07/21/2019 Date of Discharge 07/22/2019 Admission Diagnosis tachycardia-bradycardia syndrome, Atrial fibrillation with rapid ventricular rate, Severe symptomatic bradycardia Final/Discharge Diagnosis successful right-sided dual-chamber permanent pacemaker implantation. Chief Complaint/HPI Chief Complaint/HPI this is a 28-year-old gentleman with complains of atrial fibrillation with rapid ventricular rate. He was complaining of palpitations, weakness, dizziness and near-syncope. He was found to be in atrial fibrillation with rapid ventricular rate as well as afterwards severe symptomatic bradycardia with heart rates in the 30s. He has typical tachycardia bradycardia syndrome. The patient is not on any AV nicko blocking agents. Extensive discussion with the patient and family.Dual-chamber permanent pacemaker was recommended. Discharge Summary Procedures right-sided dual-chamber permanent pacemaker implantation. Discharge Physical Examination normal upper right chest examination. Normal cardiovascular and respiratory examination. Hospital Course Was the Problem List Reviewed?: Yes unremarkable. Pending Labs Laboratory Tests 07/22/19 04:02: White Blood Count 6.9, Red Blood Count 4.75, Hemoglobin 14.7, Hematocrit 42, Mean Corpuscular Volume 87, Mean Corpuscular Hemoglobin 31, Mean Corpuscular Hemoglobin Concent 35, Red Cell Distribution Width 12.7, Platelet Count 149, Mean Platelet Volume 10.5, Sodium Level 139, Potassium Level 4.2, Chloride Level 108, Carbon Dioxide Level 19, Anion Gap 12, Blood Urea Nitrogen 12, Creatinine 1.08, Estimat Glomerular Filtration Rate > 60, BUN/Creatinine Ratio 11, Glucose Level 116, Calcium Level 8.6, Corrected Calcium 8.8, Total Bilirubin 0.5, Aspartate Amino Transf (AST/SGOT) 15, Alanine Aminotransferase (ALT/SGPT) 10, Alkaline Phosphatase 63, Total Protein 6.1, Albumin 3.7 Discussion & Recommendations Discussion discharge took over 30 minutes to complete. All discharge instructions were discussed at length especially any restrictions. Amiodarone will be discontinued. Cardizem 120 mg CD will be started. Continue aspirin. Follow up appt.: Wound check with RN in one week. Device interrogation and office visit in one month. Dicharge Diet: Regular Diet Activity as Tolerated: Yes Home Medications Reviewed patient Home Medication Reconciliation performed by pharmacy medication reconciliations home theatre technician and/or nursing. Patients Allergies have been reviewed. Discharge Home Medications: Reviewed and agree with Discharge Medication list on patient's Discharge Instruction sheet Condition at discharge stable. Instructions to patient/family discussed at length with the patient. Zak DYER MD Jul 22, 2019 11:31
== END 2019-07-22 11:00 | disposition home or self-care (01) ==
LOC: CATH 12:22 → ICU 17:39 → CATH 07-22 11:00
PROVIDERS: ATTEND Internal Medicine Interventional Cardiology
DX: I48.0 Paroxysmal atrial fibrillation (principal); I49.5 Sick sinus syndrome; Z79.82 Long term (current) use of aspirin
CPT/HCPCS: 33208; 36415; 71045; 80053; 85027; 85610; 85730; 87081; 93005

== ENCOUNTER 2020-04-09 16:30 | Emergency (ER) | payer MEDICAID ==
[~2020-04-09] VITALS: Ht 190 cm; Wt 79.5 kg
[~2020-04-09 16:30] MED LIST changes: +AMIO100T4 PO; +CEPH-507 PO; +DILT120C82 PO
--- NOTE | 2020-04-09 17:07 | ED General ---
General Chief Complaint: General Problems/Pain Stated Complaint: WEAK,DIZZY Source of Information: Patient Exam Limitations: No Limitations History of Present Illness Date Seen by Provider: April 09, 2020 Time Seen by Provider: 17:02 Initial Comments 29-year-old male presents with some generalized weakness, dizziness. Patient reports when he stands up he seems to get short of breath. Patient has a pacemaker due to tachycardia bradycardia syndrome that was been placed about a year ago. He denies any chest pain, palpitations. He is mildly nauseated. He denies any fever, cough, chills. Reports that over the weekend he later had a restful pain was started on better and has not improved. Patient reports that he does not smoke, drink, no drugs or energy drinks due to the potential problems with his syndrome. Allergies and Home Medications Allergies Coded Allergies: No Known Drug Allergies (Unverified , 06/21/19) Home Medications Aspirin 325 Mg Tablet, 325 MG PO DAILY Prescribed by: EUSEBIO MURILLO on 06/22/19 1435 Diltiazem HCl 120 Mg Cap.er.24h, 120 MG PO DAILY Prescribed by: BLAYNE MENDOZA on 07/22/19 1027 Patient Home Medication List Home Medication List Reviewed: Yes Review of Systems Review of Systems Constitutional: No chills; dizziness; No fever; malaise, weakness Respiratory: No cough; dyspnea on exertion, short of breath Gastrointestinal: No abdominal pain, No constipation, No diarrhea; nausea; No vomiting Musculoskeletal: see HPI Skin: see HPI Psychiatric/Neurological: See HPI Past Wnqejue-Ztkwgu-Kafiiy Hx Past Med/Social Hx: Reviewed Nursing Past Med/Soc Hx Patient Social History Alcohol Beverage of Choice: Beer Type Used: Cigarettes 2nd Hand Smoke Exposure: Yes Recent Foreign Travel: No Contact w/Someone Who Travel: No Seasonal Allergies Seasonal Allergies: No Past Medical History Surgeries: No Cardiac: No (reports having had arrhythmia hx "heart pounding" in past) Atrial Fibrillation, Irregular Heartbeat Neurological: No Genitourinary: No Gastrointestinal: No Musculoskeletal: No Endocrine: No HEENT: No Cancer: No Did You Recieve Any Treatments: No Psychosocial: No (denies) Integumentary: No Blood Disorders: No Family Medical History No Pertinent Family Hx Physical Exam Vital Signs Vital Signs - First Documented 04/09/20 17:03 Temp 37.0 Pulse 77 Resp 16 B/P (MAP) 124/86 (99) Pulse Ox 98 Capillary Refill : Height, Weight, BMI Height: 6'3.00" Weight: 161lbs. 2.0oz. [id number]; 20.0 BMI Method:Stated General Appearance: No Apparent Distress HEENT: PERRL/EOMI Neck: Non Tender Respiratory: Chest Non Tender, Lungs Clear, Normal Breath Sounds Cardiovascular: Regular Rate, Rhythm, No Edema Gastrointestinal: Non Tender, Soft Back: Normal Inspection Extremity: Normal Capillary Refill, Normal Inspection Neurologic/Psychiatric: Alert, Oriented x3, No Motor/Sensory Deficits, Normal Mood/Affect, fisher seal II-XII Norm as Tested Skin: Normal Color, Warm/Dry Progress/Results/Core Measures Suspected Sepsis SIRS Temperature: Pulse: Respiratory Rate: Laboratory Tests 04/09/20 17:29: White Blood Count 7.0 Blood Pressure / Mean: Laboratory Tests 04/09/20 17:29: Creatinine 0.89, Platelet Count 177, Total Bilirubin 0.3 Results/Orders Lab Results Laboratory Tests Test 04/09/20 17:29 04/09/20 17:36 Range/Units White Blood Count 7.0 4.3-11.0 10^3/uL Red Blood Count 4.98 4.35-5.85 10^6/uL Hemoglobin 15.5 13.3-17.7 G/DL Hematocrit 44 40-54 % Mean Corpuscular Volume 88 80-99 FL Mean Corpuscular Hemoglobin 31 25-34 PG Mean Corpuscular Hemoglobin Concent 36 32-36 G/DL Red Cell Distribution Width 12.2 10.0-14.5 % Platelet Count 177 130-400 10^3/uL Mean Platelet Volume 10.5 H 7.4-10.4 FL Neutrophils (%) (Auto) 60 42-75 % Lymphocytes (%) (Auto) 30 12-44 % Monocytes (%) (Auto) 8 0-12 % Eosinophils (%) (Auto) 2 0-10 % Basophils (%) (Auto) 1 0-10 % Neutrophils # (Auto) 4.2 1.8-7.8 X 10^3 Lymphocytes # (Auto) 2.1 1.0-4.0 X 10^3 Monocytes # (Auto) 0.5 0.0-1.0 X 10^3 Eosinophils # (Auto) 0.1 0.0-0.3 10^3/uL Basophils # (Auto) 0.0 0.0-0.1 10^3/uL Sodium Level 141 135-145 MMOL/L Potassium Level 4.9 3.6-5.0 MMOL/L Chloride Level 106 98-107 MMOL/L Carbon Dioxide Level 24 21-32 MMOL/L Anion Gap 11 5-14 MMOL/L Blood Urea Nitrogen 11 7-18 MG/DL Creatinine 0.89 0.60-1.30 MG/DL Estimat Glomerular Filtration Rate > 60 BUN/Creatinine Ratio 12 Glucose Level 100 70-105 MG/DL Calcium Level 9.3 8.5-10.1 MG/DL Corrected Calcium 8.9 8.5-10.1 MG/DL Magnesium Level 2.1 1.6-2.4 MG/DL Total Bilirubin 0.3 0.1-1.0 MG/DL Aspartate Amino Transf (AST/SGOT) 18 5-34 U/L Alanine Aminotransferase (ALT/SGPT) 13 0-55 U/L Alkaline Phosphatase 77 40-136 U/L Troponin I < 0.30 <0.30 NG/ML Pro-B-Type Natriuretic Peptide 21.6 <75.0 PG/ML Total Protein 6.9 6.4-8.2 GM/DL Albumin 4.5 3.2-4.5 GM/DL Urine Color YELLOW Urine Clarity CLEAR Urine pH 7.0 5-9 Urine Specific [place] 1.020 1.016-1.022 Urine Protein NEGATIVE NEGATIVE Urine Glucose (UA) NEGATIVE NEGATIVE Urine Ketones NEGATIVE NEGATIVE Urine Nitrite NEGATIVE NEGATIVE Urine Bilirubin NEGATIVE NEGATIVE Urine Urobilinogen 0.2 < = 1.0 MG/DL Urine Leukocyte Esterase NEGATIVE NEGATIVE Urine RBC (Auto) NEGATIVE NEGATIVE Urine RBC NONE /HPF Urine WBC NONE /HPF Urine Crystals PRESENT H /LPF Urine Amorphous Sediment FEW SAKINA PHOSPHATE H /LPF Urine Bacteria NONE /HPF Urine Casts NONE /LPF Urine Mucus NEGATIVE /LPF Urine Culture Indicated NO My Orders Orders - CHOI,KAISER L DO Chest Pa/Lat (2 View) (04/09/20 17:09) Cbc With Automated Diff (04/09/20 17:09) Comprehensive Metabolic Panel (04/09/20 17:09) Magnesium (04/09/20 17:09) Probnp Fs (04/09/20 17:09) Crp Fs (04/09/20 17:09) Ed Iv/Invasive Line Start (04/09/20 17:09) Ekg Tracing (04/09/20 17:09) Monitor-Rhythm Ecg Trace Only (04/09/20 17:09) Troponin I Fs (04/09/20 17:09) Ua Culture If Indicated (04/09/20 17:09) Ed Iv/Invasive Line Start (04/09/20 17:59) Ns Iv 1000 Ml (Sodium Chloride 0.9%) (04/09/20 17:59) Vital Signs/I&O 04/09/20 17:03 Temp 37.0 Pulse 77 Resp 16 B/P (MAP) 124/86 (99) Pulse Ox 98 Capillary Refill : Progress Note : Time: 18:12 Progress Note Patient with negative EKG, x-ray and labs. Discussed with patient whether he would like to be admitted for observation versus discharged home. At this time patient would prefer to be discharged home. I did discuss with him that he should return if symptoms considerably worsen. I will give him 1 L normal saline prior to his discharge. I recommended he call Dr. Elizabeth his pollution control chemist in the morning to ensure he does not want to further outpatient testing. Patient is discharged home in stable condition Diagnostic Imaging Diagonstic Imaging: Xray Comments [facility], [place] NAME: LUIS ARMANDO [facility] REC#: [id number] PT STATUS: REG ER : 1990 PHYSICIAN: KAISER CHOI DO ADMIT DATE: 04/09/20/ER FS Draft Date of Exam:04/09/20 CHEST PA/LAT (2 VIEW) EXAMINATION: Two views of the chest. COMPARISON: Comparison is made with a prior portable view from July 21, 2019. FINDINGS: A right-sided pacemaker device is present. The right atrial lead appears unchanged. The right ventricular lead has changed in position with a new loop within the lead. Its distal aspect appears to continue to terminate within the right ventricle. Heart size is stable. There is no pulmonary infiltrate or consolidation. There is no effusion. There is no pneumothorax. IMPRESSION: 1. No radiographic evidence of an acute cardiopulmonary process. 2. Interval change in the patient's pacemaker leads with a new loop within the right ventricular lead. Positioning of its distal aspect does not appear significantly changed Departure Impression Primary Impression: Malaise and fatigue Disposition: 01 HOME, SELF-CARE Condition: Stable Departure-Patient Inst. Referrals: NO,LOCAL PHYSICIAN (PCP/Family) Primary Care Physician Patient Instructions: Fatigue, Generalized Weakness Add. Discharge Instructions: Called Dr. Elizabeth in the morning for further recommendations Return to the ER if symptoms severely worsen Emergency department focuses on treating and ruling out life-threatening diseases. Whenever possible, a diagnosis is given. However, most patients are given an impression based on their history, physical exam, and workup during your brief time in the ER. Information about probable diagnosis and other educational material has been provided. Please take the time to read and understand this information. It is very important that you follow up with a physician as discussed during the visit today. Failure to adhere to your follow-up instructions may lead to severe disability, injury, or so please make sure to keep your appointments or obtain one as requested. Please keep in mind the emergency department is not designed to your primary care or "family doctor" and nonurgent issues are best evaluated by an outpatient physician All discharge instructions reviewed with patient and/or family. Voiced understanding. KAISER CHOI DO April 09, 2020 17:07
[2020-04-09 17:40] LABS: HEMATOCRIT 44 % (40-54); HEMOGLOBIN 15.5 G/DL (13.3-17.7); MEAN CORPUSCULAR HEMOGLOBIN 31 PG (25-34)
[2020-04-09 17:41] LABS: BASOPHILS % (AUTO) 1 % (0-10); EOSINOPHILS # (AUTO) 0.1 10^3/uL (0.0-0.3); EOSINOPHILS % (AUTO) 2 % (0-10); LYMPHOCYTES # (AUTO) 2.1 X 10^3 (1.0-4.0); LYMPHOCYTES % (AUTO) 30 % (12-44); MEAN CORPUSCULAR HGB CONC 36 G/DL (32-36); MEAN CORPUSCULAR VOLUME 88 FL (80-99); MEAN PLATELET VOLUME 10.5 FL (7.4-10.4); MONOCYTES # (AUTO) 0.5 X 10^3 (0.0-1.0); MONOCYTES % (AUTO) 8 % (0-12); NEUTROPHILS # (AUTO) 4.2 X 10^3 (1.8-7.8); NEUTROPHILS % (AUTO) 60 % (42-75); PLATELET COUNT 177 10^3/uL (130-400); RED CELL DISTRIBUTION WIDTH 12.2 % (10.0-14.5)
[2020-04-09 17:49] LABS: CLARITY,URINE CLEAR; COLOR,URINE YELLOW
[2020-04-09 17:50] LABS: AMORPHOUS SEDIMENT,UR FEW AMOR PHOSPHATE /LPF; BILIRUBIN,URINE NEGATIVE (NEGATIVE); GLUCOSE, URINE (UA) NEGATIVE (NEGATIVE); KETONES,URINE NEGATIVE (NEGATIVE); LEUKOCYTE ESTERASE ,URINE NEGATIVE (NEGATIVE); NITRITE,URINE NEGATIVE (NEGATIVE); PROTEIN,URINE NEGATIVE (NEGATIVE)
--- NOTE | 2020-04-09 17:53 | Diagnostic Imaging Report ---
EXAMINATION: Two views of the chest. COMPARISON: Comparison is made with a prior portable view from July 21, 2019. FINDINGS: A right-sided pacemaker device is present. The right atrial lead appears unchanged. The right ventricular lead has changed in position with a new loop within the lead. Its distal aspect appears to continue to terminate within the right ventricle. Heart size is stable. There is no pulmonary infiltrate or consolidation. There is no effusion. There is no pneumothorax. IMPRESSION: 1. No radiographic evidence of an acute cardiopulmonary process. 2. Interval change in the patient's pacemaker leads with a new loop within the right ventricular lead. Positioning of its distal aspect does not appear significantly changed. Dictated by: Dictated on workstation # [id number]
[2020-04-09] MEDS ORDERED: NS IV 1000 ML 1,000 ML IV SCH (17:59)
[2020-04-09 18:05] LABS: CARBON DIOXIDE 24 MMOL/L (21-32); CHLORIDE 106 MMOL/L (98-107); POTASSIUM 4.9 MMOL/L (3.6-5.0); SODIUM 141 MMOL/L (135-145)
[2020-04-09 18:06] LABS: ALANINE AMINOTRANSFERASE 13 U/L (0-55); ALBUMIN 4.5 GM/DL (3.2-4.5); ALKALINE PHOSPHATASE 77 U/L (40-136); BILIRUBIN,TOTAL 0.3 MG/DL (0.1-1.0); BUN/CREATININE RATIO 12; CALCIUM 9.3 MG/DL (8.5-10.1); CREATININE SERUM 0.89 MG/DL (0.60-1.30); GFR ESTIMATED > 60; GLUCOSE 100 MG/DL (70-105); MAGNESIUM 2.1 MG/DL (1.6-2.4); TOTAL PROTEIN 6.9 GM/DL (6.4-8.2)
--- OUTSIDE RECORDS SUMMARY | 2020-04-09 18:22 | XMS REPORT | Continuity of Care Document ---
Author Organization Unknown Address Unknown Phone Unavailable Allergies Active Description Code Type Severity Reaction Onset Reported/Identified Relationship to Patient Clinical Status Yes No Known Drug Allergies [id number] Drug Allergy Unknown N/A 06/21/2019 Medications There is no data. Problems Date Dx Coded Attending Type Code Diagnosis Diagnosed By 06/22/2019 PRASHANTH TURNER, GRIFFIN Crespo Ot F41. 9 ANXIETY DISORDER, UNSPECIFIED 06/22/2019 PRASHANTH TURNER, GRIFFIN Crespo Ot I48. 0 PAROXYSMAL ATRIAL FIBRILLATION 06/22/2019 GRIFFIN ALFORD MD, Ot F41. 9 ANXIETY DISORDER, UNSPECIFIED 06/22/2019 GRIFFIN ALFORD MD, Ot I48. 0 PAROXYSMAL ATRIAL FIBRILLATION 06/22/2019 GRIFFIN ALFORD MD, Ot L23. 9 ALLERGIC CONTACT DERMATITIS, UNSPECIFIED 06/22/2019 GRIFFIN ALFORD MD, Ot R07. 9 CHEST PAIN, UNSPECIFIED 07/08/2019 ENID ALBERT DO Ot I48.91 UNSPECIFIED ATRIAL FIBRILLATION 07/08/2019 ENID ALBERT DO Ot R00 .2 PALPITATIONS 07/08/2019 ENID ALBERT DO Ot R53 .1 WEAKNESS 07/08/2019 ENID ALBERT DO Ot R55 SYNCOPE AND COLLAPSE 07/11/2019 ENID ALBERT DO Ot I48.91 UNSPECIFIED ATRIAL FIBRILLATION 07/11/2019 ENID ALBERT DO Ot R00 .2 PALPITATIONS 07/11/2019 ENID ALBERT DO Ot R53 .1 WEAKNESS 07/11/2019 ENID ALBERT DO Ot R55 SYNCOPE AND COLLAPSE 07/22/2019 Zak DYER MD Ot I48 .0 PAROXYSMAL ATRIAL FIBRILLATION 07/22/2019 Zak DYER MD Ot I49 .5 SICK SINUS SYNDROME 07/22/2019 Zak DYER MD Ot Z79.82 SAP BW ARCHITECT (CURRENT) USE OF ASPIRIN 07/27/2019 KHALID MD, M HARVEY Ot I48 .0 PAROXYSMAL ATRIAL FIBRILLATION 07/27/2019 Zak DYER MD Ot I48 .0 PAROXYSMAL ATRIAL FIBRILLATION 07/27/2019 Zak DYER MD Ot I49 .5 SICK SINUS SYNDROME 07/27/2019 Zak DYER MD, Ot Z79.82 SAP BW ARCHITECT (CURRENT) USE OF ASPIRIN 08/18/2019 Zak DYER MD Ot I48 .0 PAROXYSMAL ATRIAL FIBRILLATION 08/18/2019 Zak DYER MD, Ot I49 .5 SICK SINUS SYNDROME 08/18/2019 Zak DYER MD, Ot Z79.82 HALFWAY (CURRENT) USE OF ASPIRIN 08/30/2019 Zak DYER MD Ot I48 .0 PAROXYSMAL ATRIAL FIBRILLATION 08/30/2019 Zak DYER MD, Ot I48 .0 PAROXYSMAL ATRIAL FIBRILLATION 09/10/2019 ENID ALBERT DO Ot I48.91 UNSPECIFIED ATRIAL FIBRILLATION 09/10/2019 ENID ALBERT DO Ot R00 .2 PALPITATIONS 09/10/2019 ENID ALBERT DO Ot R53 .1 WEAKNESS 09/10/2019 ENID ALBERT DO Ot R55 SYNCOPE AND COLLAPSE 09/26/2019 Zak DYER MD Ot I48 .0 PAROXYSMAL ATRIAL FIBRILLATION 03/28/2020 Zak DYER MD, Ot I48 .0 PAROXYSMAL ATRIAL FIBRILLATION Procedures There is no data. Results Test Result Range Blood CBC with ordered manual differenti al panel - 06/21/19 08:40 Blood leukocytes automated count (number/volume) 8.7 10*3/uL 4.3-11.0 Blood erythrocytes automated count (number/volume) 5.89 10*6/uL 4.35-5.85 Venous blood hemoglobin measurement (mass/volume) 18.3 g/dL 13.3-17.7 Blood hematocrit (volume fraction) 51 % 40-54 Automated erythrocyte mean corpuscular volume 87 [ foz_us] 80-99 Automated erythrocyte mean corpuscular h emoglobin (mass per erythrocyte) 31 pg 25-34 Automated erythrocyte mean corpuscular h emoglobin concentration measurement (mass/volume) 36 g/dL 32-36 Automated erythrocyte distribution width ratio 12. 7 % 10.0- 14.5 Automated blood platelet count (count/volume) 205 10*3/uL 130-400 Automated blood platelet mean volume measurement 10.2 [foz_us] 7.4-10.4 Blood monocytes/100 leukocytes 9 % NRG Manual blood segmented neutrophils/100 leukocytes 47 % NRG Blood band neutrophils/100 leukocytes 1 % NRG Manual blood lymphocytes/100 leukocytes 42 % NRG Manual eosinophils/100 leukocytes in nose 1 % NRG Manual blood basophils/100 leukocytes 0 % NRG Comprehensive metabolic panel - 06/21/19 08:40 Serum or plasma sodium measurement (moles/volume) 139 mmol/L 135-145 Serum or plasma potassium measurement (moles/volume) 4.3 mmol/L 3.6-5.0 Serum or plasma chloride measurement (moles/volume) 100 mmol/L 98-107 Carbon dioxide 24 mmol/L 21-32 Serum or plasma anion gap determination (moles/volume) 15 mmol/L 5-14 Serum or plasma urea nitrogen measurement (mass/volume ) 10 mg/dL 7-18 Serum or plasma creatinine measurement (mass/volume) 1.13 mg/dL 0.60-1.30 Serum or plasma urea nitrogen/creatinine mass ratio 9 NRG Serum or plasma creatinine measurement w ith calculation of estimated glomerular filtration rate > NRG Serum or plasma glucose measurement (mass/volume) 101 mg/dL 70-105 Serum or plasma calcium measurement (mass/volume) 9.8 mg/dL 8.5-10.1 Serum or plasma total bilirubin measurement (mass/volu me) 1.0 mg/dL 0.1-1.0 Serum or plasma alkaline phosphatase viktor surement (enzymatic activity/volume) 82 U/L 40-136 Serum or plasma aspartate aminotransfera se measurement (enzymatic activity/volume) 25 U/L 5-34 Serum or plasma alanine aminotransferase measurement (enzymatic activity/volume) 19 U/L 0-55 Serum or plasma protein measurement (mass/volume) 7.7 g/dL 6.4-8.2 Serum or plasma albumin measurement (mass/volume) 4.7 g/dL 3.2-4.5 Magnesium - 06/21/19 08:40 Magnesium 2.1 mg/dL 1.8-2.4 Serum or plasma troponin i.cardiac measu rement (mass/volume) - 06/21/19 08:40 Serum or plasma troponin i.cardiac measurement (mass/v olume) < ng/mL <0.30 PROBNP FS - 06/21/19 08:40 PROBNP FS 215.0 pg/mL <75.0 Serum or plasma ethanol measurement (mas s/volume) - 06/21/19 08:40 Serum or plasma ethanol measurement (mass/volume) < mg/dL <10 THYROID STIMULATING HORMONE - 06/21/19 0 8:40 THYROID STIMULATING HORMONE 1.10 u[iU]/mL 0.35-4.94 Urine drug screening test - 06/21/19 09: 25 Urine phencyclidine detection by screening method NEGATIVE NEGATIVE Urine benzodiazepines detection by screening method NEGATIVE NEGATIVE Urine cocaine detection NEGATIVE NEGATI VE Urine amphetamines detection by screening method N EGATIVE NEGATIVE Urine methamphetamine detection by screening method NEGATIVE NEGATIVE Urine cannabinoids detection by screening method N EGATIVE NEGATIVE Urine opiates detection by screening method NEGATI VE NEGATIVE Urine barbiturates detection NEGATIVE N EGATIVE Screening urine tricyclic antidepressants detection NEGATIVE NEGATIVE Urine methadone detection by screening method NEGA TIVE NEGATIVE Urine oxycodone detection NEGATIVE NEGA TIVE Urine propoxyphene detection NEGATIVE N EGATIVE Methicillin resistant Staphylococcus aur eus (MRSA) screening culture - 06/21/19 12:20 MRSA SCREEN RESULT MRSA ISOLATED NRG Complete blood count (CBC) with automate d white blood cell (WBC) differential - 06/22/19 03:10 Blood leukocytes automated count (number/volume) 7.6 10*3/uL 4.3-11.0 Blood erythrocytes automated count (number/volume) 5.09 10*6/uL 4.35-5.85 Venous blood hemoglobin measurement (mass/volume) 15.6 g/dL 13.3-17.7 Blood hematocrit (volume fraction) 44 % 40-54 Automated erythrocyte mean corpuscular volume 87 [ foz_us] 80-99 Automated erythrocyte mean corpuscular h emoglobin (mass per erythrocyte) 31 pg 25-34 Automated erythrocyte mean corpuscular h emoglobin concentration measurement (mass/volume) 35 g/dL 32-36 Automated erythrocyte distribution width ratio 13. 1 % 10.0- 14.5 Automated blood platelet count (count/volume) 165 10*3/uL 130-400 Automated blood platelet mean volume measurement 10.7 [foz_us] 7.4-10.4 Automated blood neutrophils/100 leukocytes 52 % 42-75 Automated blood lymphocytes/100 leukocytes 36 % 12-44 Blood monocytes/100 leukocytes 9 % 0-12 Automated blood eosinophils/100 leukocytes 3 % 0-10 Automated blood basophils/100 leukocytes 0 % 0-10 Blood neutrophils automated count (number/volume) 3.9 10*3 1.8-7.8 Blood lymphocytes automated count (number/volume) 2.8 10*3 1.0-4.0 Blood monocytes automated count (number/volume) 0. 7 10*3 0.0-1.0 Automated eosinophil count 0.2 10*3/uL 0 .0-0.3 Automated blood basophil count (count/volume) 0.0 10*3/uL 0.0-0.1 Whole blood basic metabolic panel - 05/25 12/11 03:10 Serum or plasma sodium measurement (moles/volume) 136 mmol/L 135-145 Serum or plasma potassium measurement (moles/volume) 4.8 mmol/L 3.6-5.0 Serum or plasma chloride measurement (moles/volume) 104 mmol/L 98-107 Carbon dioxide 23 mmol/L 21-32 Serum or plasma anion gap determination (moles/volume) 9 mmol/L 5-14 Serum or plasma urea nitrogen measurement (mass/volume ) 12 mg/dL 7-18 Serum or plasma creatinine measurement (mass/volume) 1.09 mg/dL 0.60-1.30 Serum or plasma urea nitrogen/creatinine mass ratio 11 NRG Serum or plasma creatinine measurement w ith calculation of estimated glomerular filtration rate > NRG Serum or plasma glucose measurement (mass/volume) 100 mg/dL 70-105 Serum or plasma calcium measurement (mass/volume) 9.3 mg/dL 8.5-10.1 Serum or plasma phosphate measurement (m ass/volume) - 06/22/19 03:10 Serum or plasma phosphate measurement (mass/volume) 4.1 mg/dL 2.3-4.7 Magnesium - 06/22/19 03:10 Magnesium 2.2 mg/dL 1.8-2.4 Complete blood count (CBC) with automate d white blood cell (WBC) differential - 07/08/19 08:15 Blood leukocytes automated count (number/volume) 6.3 10*3/uL 4.3-11.0 Blood erythrocytes automated count (number/volume) 5.31 10*6/uL 4.35-5.85 Venous blood hemoglobin measurement (mass/volume) 16.3 g/dL 13.3-17.7 Blood hematocrit (volume fraction) 46 % 40-54 Automated erythrocyte mean corpuscular volume 86 [ foz_us] 80-99 Automated erythrocyte mean corpuscular h emoglobin (mass per erythrocyte) 31 pg 25-34 Automated erythrocyte mean corpuscular h emoglobin concentration measurement (mass/volume) 36 g/dL 32-36 Automated erythrocyte distribution width ratio 12. 3 % 10.0- 14.5 Automated blood platelet count (count/volume) 179 10*3/uL 130-400 Automated blood platelet mean volume measurement 10.4 [foz_us] 7.4-10.4 Automated blood neutrophils/100 leukocytes 49 % 42-75 Automated blood lymphocytes/100 leukocytes 41 % 12-44 Blood monocytes/100 leukocytes 7 % 0-12 Automated blood eosinophils/100 leukocytes 2 % 0-10 Automated blood basophils/100 leukocytes 1 % 0-10 Blood neutrophils automated count (number/volume) 3.1 10*3 1.8-7.8 Blood lymphocytes automated count (number/volume) 2.6 10*3 1.0-4.0 Blood monocytes automated count (number/volume) 0. 5 10*3 0.0-1.0 Automated eosinophil count 0.1 10*3/uL 0 .0-0.3 Automated blood basophil count (count/volume) 0.0 10*3/uL 0.0-0.1 Comprehensive metabolic panel - 07/08/19 08:15 Serum or plasma sodium measurement (moles/volume) 138 mmol/L 135-145 Serum or plasma potassium measurement (moles/volume) 3.7 mmol/L 3.6-5.0 Serum or plasma chloride measurement (moles/volume) 102 mmol/L 98-107 Carbon dioxide 20 mmol/L 21-32 Serum or plasma anion gap determination (moles/volume) 16 mmol/L 5-14 Serum or plasma urea nitrogen measurement (mass/volume ) 11 mg/dL 7-18 Serum or plasma creatinine measurement (mass/volume) 1.02 mg/dL 0.60-1.30 Serum or plasma urea nitrogen/creatinine mass ratio 11 NRG Serum or plasma creatinine measurement w ith calculation of estimated glomerular filtration rate > NRG Serum or plasma glucose measurement (mass/volume) 124 mg/dL 70-105 Serum or plasma calcium measurement (mass/volume) 9.7 mg/dL 8.5-10.1 Serum or plasma total bilirubin measurement (mass/volu me) 1.0 mg/dL 0.1-1.0 Serum or plasma alkaline phosphatase viktor surement (enzymatic activity/volume) 73 U/L 40-136 Serum or plasma aspartate aminotransfera se measurement (enzymatic activity/volume) 21 U/L 5-34 Serum or plasma alanine aminotransferase measurement (enzymatic activity/volume) 15 U/L 0-55 Serum or plasma protein measurement (mass/volume) 7.0 g/dL 6.4-8.2 Serum or plasma albumin measurement (mass/volume) 4.4 g/dL 3.2-4.5 CALCIUM CORRECTED 9.4 mg/dL 8.5-10.1 Magnesium - 07/08/19 08:15 Magnesium 2.0 mg/dL 1.6-2.4 Serum or plasma troponin i.cardiac measu rement (mass/volume) - 07/08/19 08:15 Serum or plasma troponin i.cardiac measurement (mass/v olume) < ng/mL <0.30 PROBNP FS - 07/08/19 08:15 PROBNP FS 72.5 pg/mL <75.0 Automated blood complete blood count (he mogram) panel - 07/21/19 12:53 Blood leukocytes automated count (number/volume) 6.6 10*3/uL 4.3-11.0 Blood erythrocytes automated count (number/volume) 4.90 10*6/uL 4.35-5.85 Venous blood hemoglobin measurement (mass/volume) 15.0 g/dL 13.3-17.7 Blood hematocrit (volume fraction) 42 % 40-54 Automated erythrocyte mean corpuscular volume 86 [ foz_us] 80-99 Automated erythrocyte mean corpuscular h emoglobin (mass per erythrocyte) 31 pg 25-34 Automated erythrocyte mean corpuscular h emoglobin concentration measurement (mass/volume) 36 g/dL 32-36 Automated erythrocyte distribution width ratio 12. 8 % 10.0- 14.5 Automated blood platelet count (count/volume) 179 10*3/uL 130-400 Automated blood platelet mean volume measurement 10.4 [foz_us] 7.4-10.4 Comprehensive metabolic panel - 07/21/19 12:53 Serum or plasma sodium measurement (moles/volume) 140 mmol/L 135-145 Serum or plasma potassium measurement (moles/volume) 4.6 mmol/L 3.6-5.0 Serum or plasma chloride measurement (moles/volume) 106 mmol/L 98-107 Carbon dioxide 23 mmol/L 21-32 Serum or plasma anion gap determination (moles/volume) 11 mmol/L 5-14 Serum or plasma urea nitrogen measurement (mass/volume ) 10 mg/dL 7-18 Serum or plasma creatinine measurement (mass/volume) 1.12 mg/dL 0.60-1.30 Serum or plasma urea nitrogen/creatinine mass ratio 9 NRG Serum or plasma creatinine measurement w ith calculation of estimated glomerular filtration rate > NRG Serum or plasma glucose measurement (mass/volume) 88 mg/dL 70-105 Serum or plasma calcium measurement (mass/volume) 9.3 mg/dL 8.5-10.1 Serum or plasma total bilirubin measurement (mass/volu me) 0.8 mg/dL 0.1-1.0 Serum or plasma alkaline phosphatase viktor surement (enzymatic activity/volume) 77 U/L 40-136 Serum or plasma aspartate aminotransfera se measurement (enzymatic activity/volume) 16 U/L 5-34 Serum or plasma alanine aminotransferase measurement (enzymatic activity/volume) 11 U/L 0-55 Serum or plasma protein measurement (mass/volume) 6.9 g/dL 6.4-8.2 Serum or plasma albumin measurement (mass/volume) 4.2 g/dL 3.2-4.5 CALCIUM CORRECTED 9.1 mg/dL 8.5-10.1 PT panel in platelet poor plasma by coag ulation assay - 07/21/19 12:53 Prothrombin time (PT) in platelet poor plasma by coagu lation assay 14.2 s 12.2-14.7 INR in platelet poor plasma or blood by coagulation as say 1.1 0.8-1.4 Activated partial thromboplastin time (a PTT) in platelet poor plasma bycoagulation assay - 07/21/19 12:53 Activated partial thromboplastin time (a PTT) in platelet poor plasma bycoagulation assay 33 s 24-35 Methicillin resistant Staphylococcus aur eus (MRSA) screening culture - 07/21/19 12:53 Methicillin resistant Staphylococcus aureus (MRSA) scr eening culture NEG NRG Automated blood complete blood count (he mogram) panel - 07/22/19 04:02 Blood leukocytes automated count (number/volume) 6.9 10*3/uL 4.3-11.0 Blood erythrocytes automated count (number/volume) 4.75 10*6/uL 4.35-5.85 Venous blood hemoglobin measurement (mass/volume) 14.7 g/dL 13.3-17.7 Blood hematocrit (volume fraction) 42 % 40-54 Automated erythrocyte mean corpuscular volume 87 [ foz_us] 80-99 Automated erythrocyte mean corpuscular h emoglobin (mass per erythrocyte) 31 pg 25-34 Automated erythrocyte mean corpuscular h emoglobin concentration measurement (mass/volume) 35 g/dL 32-36 Automated erythrocyte distribution width ratio 12. 7 % 10.0- 14.5 Automated blood platelet count (count/volume) 149 10*3/uL 130-400 Automated blood platelet mean volume measurement 10.5 [foz_us] 7.4-10.4 Comprehensive metabolic panel - 07/22/19 04:02 Serum or plasma sodium measurement (moles/volume) 139 mmol/L 135-145 Serum or plasma potassium measurement (moles/volume) 4.2 mmol/L 3.6-5.0 Serum or plasma chloride measurement (moles/volume) 108 mmol/L 98-107 Carbon dioxide 19 mmol/L 21-32 Serum or plasma anion gap determination (moles/volume) 12 mmol/L 5-14 Serum or plasma urea nitrogen measurement (mass/volume ) 12 mg/dL 7-18 Serum or plasma creatinine measurement (mass/volume) 1.08 mg/dL 0.60-1.30 Serum or plasma urea nitrogen/creatinine mass ratio 11 NRG Serum or plasma creatinine measurement w ith calculation of estimated glomerular filtration rate > NRG Serum or plasma glucose measurement (mass/volume) 116 mg/dL 70-105 Serum or plasma calcium measurement (mass/volume) 8.6 mg/dL 8.5-10.1 Serum or plasma total bilirubin measurement (mass/volu me) 0.5 mg/dL 0.1-1.0 Serum or plasma alkaline phosphatase viktor surement (enzymatic activity/volume) 63 U/L 40-136 Serum or plasma aspartate aminotransfera se measurement (enzymatic activity/volume) 15 U/L 5-34 Serum or plasma alanine aminotransferase measurement (enzymatic activity/volume) 10 U/L 0-55 Serum or plasma protein measurement (mass/volume) 6.1 g/dL 6.4-8.2 Serum or plasma albumin measurement (mass/volume) 3.7 g/dL 3.2-4.5 CALCIUM CORRECTED 8.8 mg/dL 8.5-10.1 Complete blood count (CBC) with automate d white blood cell (WBC) differential - 04/09/20 17:29 Blood leukocytes automated count (number/volume) 7.0 10*3/uL 4.3-11.0 Blood erythrocytes automated count (number/volume) 4.98 10*6/uL 4.35-5.85 Venous blood hemoglobin measurement (mass/volume) 15.5 g/dL 13.3-17.7 Blood hematocrit (volume fraction) 44 % 40-54 Automated erythrocyte mean corpuscular volume 88 [ foz_us] 80-99 Automated erythrocyte mean corpuscular h emoglobin (mass per erythrocyte) 31 pg 25-34 Automated erythrocyte mean corpuscular h emoglobin concentration measurement (mass/volume) 36 g/dL 32-36 Automated erythrocyte distribution width ratio 12. 2 % 10.0- 14.5 Automated blood platelet count (count/volume) 177 10*3/uL 130-400 Automated blood platelet mean volume measurement 10.5 [foz_us] 7.4-10.4 Automated blood neutrophils/100 leukocytes 60 % 42-75 Automated blood lymphocytes/100 leukocytes 30 % 12-44 Blood monocytes/100 leukocytes 8 % 0-12 Automated blood eosinophils/100 leukocytes 2 % 0-10 Automated blood basophils/100 leukocytes 1 % 0-10 Blood neutrophils automated count (number/volume) 4.2 10*3 1.8-7.8 Blood lymphocytes automated count (number/volume) 2.1 10*3 1.0-4.0 Blood monocytes automated count (number/volume) 0. 5 10*3 0.0-1.0 Automated eosinophil count 0.1 10*3/uL 0 .0-0.3 Automated blood basophil count (count/volume) 0.0 10*3/uL 0.0-0.1 Comprehensive metabolic panel - 04/09/20 17:29 Serum or plasma sodium measurement (moles/volume) 141 mmol/L 135-145 Serum or plasma potassium measurement (moles/volume) 4.9 mmol/L 3.6-5.0 Serum or plasma chloride measurement (moles/volume) 106 mmol/L 98-107 Carbon dioxide 24 mmol/L 21-32 Serum or plasma anion gap determination (moles/volume) 11 mmol/L 5-14 Serum or plasma urea nitrogen measurement (mass/volume ) 11 mg/dL 7-18 Serum or plasma creatinine measurement (mass/volume) 0.89 mg/dL 0.60-1.30 Serum or plasma urea nitrogen/creatinine mass ratio 12 NRG Serum or plasma creatinine measurement w ith calculation of estimated glomerular filtration rate > NRG Serum or plasma glucose measurement (mass/volume) 100 mg/dL 70-105 Serum or plasma calcium measurement (mass/volume) 9.3 mg/dL 8.5-10.1 Serum or plasma total bilirubin measurement (mass/volu me) 0.3 mg/dL 0.1-1.0 Serum or plasma alkaline phosphatase viktor surement (enzymatic activity/volume) 77 U/L 40-136 Serum or plasma aspartate aminotransfera se measurement (enzymatic activity/volume) 18 U/L 5-34 Serum or plasma alanine aminotransferase measurement (enzymatic activity/volume) 13 U/L 0-55 Serum or plasma protein measurement (mass/volume) 6.9 g/dL 6.4-8.2 Serum or plasma albumin measurement (mass/volume) 4.5 g/dL 3.2-4.5 CALCIUM CORRECTED 8.9 mg/dL 8.5-10.1 Magnesium - 04/09/20 17:29 Magnesium 2.1 mg/dL 1.6-2.4 TROPONIN I FS - 04/09/20 17:29 TROPONIN I FS < 0.30 <0.30 PROBNP FS - 04/09/20 17:29 PROBNP FS 21.6 pg/mL <75.0 Complete urinalysis with reflex to cultu re - 04/09/20 17:36 Urine color determination YELLOW NRG Urine clarity determination CLEAR NR G Urine pH measurement by test strip 7.0 5-9 Specific gravity of urine by test strip 1.020 1.016-1.022 Urine protein assay by test strip, semi-quantitative NEGATIVE NEGATIVE Urine glucose detection by automated test strip NE GATIVE NEGATIVE Erythrocytes detection in urine sediment by light micr oscopy NEGATIVE NEGATIVE Urine ketones detection by automated test strip NE GATIVE NEGATIVE Urine nitrite detection by test strip NEGATIVE NEGATIVE Urine total bilirubin detection by test strip NEGA TIVE NEGATIVE Urine urobilinogen measurement by automated test strip (mass/volume) 0.2 mg/dL < = 1.0 Urine leukocyte esterase detection by dipstick NEG ATIVE NEGATIVE Automated urine sediment erythrocyte cou nt by microscopy (number/high power field) NONE NRG Automated urine sediment leukocyte count by microscopy (number/high power field) NONE NRG Bacteria detection in urine sediment by light microsco py NONE NRG Crystals detection in urine sediment by light microsco py PRESENT NRG Casts detection in urine sediment by light microscopy NONE NRG Mucus detection in urine sediment by light microscopy NEGATIVE NRG Complete urinalysis with reflex to culture NO NRG Amorphous sediment detection in urine sediment by ligh t microscopy FEW SAKINA PHOSPHATE NRG Encounters ACCT No. Visit Date/Time Discharge Status Pt. Type Provider Facility Loc./Unit Complaint [id number] 10/19/2019 11:10:00 10/19/2019 23:59: 59 CLS Outpatient [facility] [id number] 09/27/2019 13:00:00 23:59:59 CLS Preadmit Zak DYER MD [facility] CARD PAF [id number] 06/28/2019 12:51:00 00:01:00 DIS Outpatient Zak DYER MD [facility] CARD PAF [id number] 07/21/2019 12:22:00 11:00:00 DIS Outpatient Zak DYER MD [facility] CATH AF [id number] 07/08/2019 08:08:00 23:59:59 CLS Outpatient ENID ALBERT DO [facility] ER FS CHEST PAIN [id number] 06/21/2019 10:59:00 15:00:00 DIS Inpatient GRIFFIN ALFORD MD [facility] ICU A-FIB RVR [id number] 04/09/2020 17:41:00 Document Registration
[2020-04-09 19:00] VITALS: BP 129/85
== END 2020-04-09 19:00 | disposition home or self-care (01) ==
LOC: EDUNIT# 16:30 → ER FS 16:31
DX: R53.81 Other malaise (principal); R53.83 Other fatigue; Z79.82 Long term (current) use of aspirin; Z95.0 Presence of cardiac pacemaker; Z77.22 Contact with and (suspected) exposure to environmental tobacco smoke (acute) (chronic)
CPT/HCPCS: 36415; 71046; 80053; 81000; 83735; 83880; 84484; 85025; 86141; 93005; 93041

== ENCOUNTER → 2020-04-23 | Outpatient (CLI) | payer MEDICAID | LOC: CARD 09:50 | PROVIDERS: ATTEND Internal Medicine Interventional Cardiology | DX: I48.0 Paroxysmal atrial fibrillation (principal); I45.89 Other specified conduction disorders; R55 Syncope and collapse | CPT/HCPCS: 93306 ==

== ENCOUNTER → 2021-05-29 | Outpatient (CLI) | payer MEDICAID ==
--- NOTE | 2021-05-29 12:51 | Diagnostic Imaging Report ---
PROCEDURE: CT head without contrast. TECHNIQUE: Multiple contiguous axial images were obtained through the brain without the use of intravenous contrast. Auto Exposure Controls were utilized during the CT exam to meet ALARA standards for radiation dose reduction. INDICATION: Increasing headaches. COMPARISON: No prior studies are available for comparison. FINDINGS: The ventricles and sulci are within normal limits. No sulcal effacement or midline shift is identified. No acute intra-axial or extra-axial hemorrhage is detected. Cisterns are patent. There is opacification of the anterior right-sided ethmoid air cells. Remaining paranasal sinuses appear clear. IMPRESSION: 1. No acute intracranial process is identified. 2. Ethmoid sinus mucosal disease. Dictated by: Dictated on workstation # [id number]
== END ==
LOC: RAD FS 12:12
PROVIDERS: ATTEND Nurse Practitioner Family
DX: J32.2 Chronic ethmoidal sinusitis (principal)
CPT/HCPCS: 70450

== ENCOUNTER 2021-11-12 05:56 | Emergency (ER) | payer BC, MEDICAID ==
--- OUTSIDE RECORDS SUMMARY | 2021-11-12 06:02 | XMS REPORT | Clinical Summary ---
Author Author [facility] Organization [facility] Address Unknown Phone Unavailable Care Team Providers Care Warp Picker Name Role Phone KathleenCriss barajas JOSUÉ PCP Source Comments Some departments are not documenting in the electronic medical record. If you d o not see the information that you expected, contact Release of Information in [facility] Information Management department at [phone] for further assistan ce in locating additional records.[facility] Allergies No known active allergies Medications End Date Status Medication Sig Dispensed Refills Start Date Active triamcinolone acetonide Apply 0 (KENALOG) 0.1 % topical topically to cream affected area twice daily. Active dilTIAZem CD (CARTIA XT) TAKE 1 0 120 mg capsule CAPSULE BY MOUTH ONCE DAILY Active ergocalciferol (vitamin 1 capsule 0 D2) (DRISDOL) 1,250 mcg 1 (50,000 unit) capsule Active ascorbic acid (VITAMIN C) every 24 0 1,000 mg tablet hours. Active aspirin 325 mg tablet Take 325 mg 0 by mouth daily. Active mometasone (ELOCON) 0.1 % Apply 45 g 3 topical ointment topically to 1 affected area daily. Do not use for more than 2 weeks per month. Active tacrolimus (PROTOPIC) 0.1 Apply 60 g 3 % topical ointment topically to 1 affected area twice daily. Active Problems No known active problems Encounters Care Team Description Date Type Specialty Marquise Rose MD 09/13/2021 Refill Dermatology Marquise Rose MD Other eczema (Primary Dx) 09/05/2021 Office Visit Dermatology 09/05/2021 Travel from Last 3 Months Social History Date Tobacco Use Types Packs/Day Years Used Never Assessed Sex Assigned at Date Recorded Not on file Last Filed Vital Signs Reading Time Taken Comments Vital Sign - - Blood Pressure - - Pulse - - Temperature - - Respiratory Rate - - Oxygen Saturation - - Inhaled Oxygen Concentration 83.9 kg (185 lb) 09/05/2021 10:13 AM CDT Weight 190.5 cm (6' 3") 09/05/2021 10:13 AM CDT Height 23.12 09/05/2021 10:13 AM CDT Body Mass Index Plan of Treatment Health Maintenance Due Date Last Done Comments HIV SCREENING 2003 DTAP/TDAP VACCINES (1 - 2006 Tdap) HEPATITIS C SCREENING 2006 PHYSICAL (COMPREHENSIVE) 2006 EXAM INFLUENZA VACCINE 06/23/2021 Results Not on filefrom Last 3 Months Insurance Type Payer Benefit Subscriber ID Effective Phone Address Plan / Dates Group PPO BCBS [facility] [id number] 2021- [phone] [id number] [facility] [address] [id number] 1 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
--- OUTSIDE RECORDS SUMMARY | 2021-11-12 06:02 | XMS REPORT | Encounter Summary ---
Author Author [facility] Organization [facility] Address Unknown Phone Unavailable Care Team Providers Care Translator Deaf Name Role Phone Criss Wang [employer] PATTERNMAKER PCP Reason for Visit * Reason Onset Date Comments Medication Refill 09/13/2021 Encounter Details Care Team Description Date Type Department Marquise Rose MD [address] [place] [address] 09/13/2021 Refill Dermatology: [facility] [address] [place] [address] [address], [address] [place] [address] Social History Date Tobacco Use Types Packs/Day Years Used Never Assessed Sex Assigned at Date Recorded Not on file Date Recorded COVID-19 Exposure Response 09/05/2021 9:53 AM CDT In the last month, have you been in contact with No / Unsure someone who was confirmed or suspected to have Coronavirus / COVID-19? documented as of this encounter Ordered Prescriptions Start Date End Date Prescription Sig Dispensed Refills 09/13/2021 tacrolimus (PROTOPIC) 0.1 Apply 60 g 3 % topical ointment topically to affected area twice daily. 09/13/2021 mometasone (ELOCON) 0.1 % Apply 45 g 3 topical ointment topically to affected area daily. Do not use for more than 2 weeks per month. documented in this encounter Miscellaneous Notes * Telephone Encounter - Maisha Rosales LPN - 09/13/2021 3:10 PM CDT Prescriptions for Mometasone and Tacrolimus ointments sent to [facility] pharmacy per pt request. Maisha Rosales LPN documented in this encounter Plan of Treatment Not on filedocumented as of this encounter Visit Diagnoses Not on filedocumented in this encounter Discontinued Medications Start Date End Date Medication Sig Discontinue Reason 09/05/2021 09/13/2021 mometasone (ELOCON) 0.1 % Apply Reorder topical ointment topically to affected area daily. 09/05/2021 09/13/2021 tacrolimus (PROTOPIC) 0.1 Apply Reorder % topical ointment topically to affected area twice daily. documented as of this encounter Care Teams Start Date End Date Translator Deaf Relationship Specialty 09/03/21 Criss Wang NP PCP - General Nurse [address] [place] [address] [place] [address] documented as of this encounter
[2021-11-12] MEDS ORDERED: ACHD5005 PO (06:18)
[2021-11-12] MEDS ORDERED: AMOX-358 PO (06:18)
[2021-11-12] MEDS ORDERED: AUGMENTIN 875 MG TAB (AMOXICILLIN/CLAVULANATE) PO STA (06:19)
[2021-11-12] MEDS ORDERED: HYDROcodone/APAP 5 MG/325 MG (LORTAB) TAB PO STA (06:19)
--- NOTE | 2021-11-12 06:19 | ED EENT ---
History of Present Illness General Chief Complaint: Dental Problems/Pain Stated Complaint: RT SIDE JAW PAIN;DIZZINESS;NAUSEA Nursing Triage Note: Pt complaining of right upper dental pain Source: patient Exam Limitations: no limitations History of Present Illness Date Seen by Provider: Nov 12, 2021 Time Seen by Provider: 06:00 Initial Comments 31-year-old male with past medical history of tachybradycardia syndrome with a pacemaker coming in due to tooth pain. This is a recurrent thing for him and last time this happened he went to the dentist and they started on some amoxicillin. He still has some that is over a year old. He started taking it 2 days ago when the pain started on the right upper part of his jaw. No fevers or swelling that he knows of. Has been able to eat. Is supposed to get all of his teeth pulled and get dentures, but has not been able to afford it as of yet. Does not have a dentist that he goes to regularly. The pain is constant, severe, throbbing, and ibuprofen does take the edge off. Allergies and Home Medications Allergies Coded Allergies: No Known Drug Allergies (Unverified , 06/21/19) Patient Home Medication List Home Medication List Reviewed: Yes Amoxicillin/Potassium Clav (Augmentin 875-125 Tablet) 1 Each Tablet, 1 EACH PO BID Prescribed by: BERHANE VILLAR on 11/12/21617 Aspirin (Aspirin) 325 Mg Tablet, 325 MG PO DAILY Prescribed by: EUSEBIO MURILLO on 06/22/19 1435 Diltiazem HCl (Cardizem Cd) 120 Mg Cap.er.24h, 120 MG PO DAILY Prescribed by: BLAYNE MENDOZA on 07/22/19 1027 Hydrocodone Bit/Acetaminophen (HYDROcodone/APAP 5 MG/325 MG TAB) 1 Tab Tab, 1 TAB PO Q8H PRN for PAIN-SEVERE (8-10) Prescribed by: BERHANE VILLAR on 11/12/21617 Review of Systems Review of Systems Constitutional: No chills, No fever Eyes: Denies Blurred Vision Ears: No Symptoms Reported Nose: no symptoms reported Mouth: pain Throat: no symptoms reported Respiratory: no symptoms reported Cardiovascular: no symptoms reported Gastrointestinal: no symptoms reported Musculoskeletal: no symptoms reported Skin: no symptoms reported Neurological: No Symptoms Reported Hematologic/Lymphatic: No Symptoms Reported Immunological/Allergic: no symptoms reported All Other Systems Reviewed Negative Unless Noted: Yes Past Zfrbxwl-Ikchle-Iktrlw Hx Patient Social History Tobacco Use?: No Use of E-Cig and/or Vaping dev: No Substance use?: No Alcohol Use?: No Pt feels they are or have been: No Seasonal Allergies Seasonal Allergies: No Past Medical History Surgeries: Yes Pacemaker Cardiac: Yes ("tachy-dorene syndrome": arrhythmia hx "heart pounding" in past) Atrial Fibrillation, Irregular Heartbeat Neurological: No Genitourinary: No Gastrointestinal: No Musculoskeletal: No Endocrine: No HEENT: No Cancer: No Did You Recieve Any Treatments: No Psychosocial: No (denies) Integumentary: No Blood Disorders: No Family Medical History No Pertinent Family Hx Physical Exam Vital Signs Vital Signs - First Documented 11/12/21 06:00 Temp 36.0 Pulse 83 Resp 18 B/P (MAP) 145/80 (101) Pulse Ox 99 O2 Delivery Room Air Height, Weight, BMI Height: 6'3.00" Weight: 161lbs. 2.0oz. 73.783297io; 22.00 BMI Method:Stated General Appearance: WD/WN, no apparent distress Eyes: bilateral eye normal inspection, bilateral eye PERRL Ears: bilateral ear auricle normal, bilateral ear canal normal Nose: normal inspection Mouth/Throat: dental tenderness (dental caries); No pharynx swelling, No pharynx tenderness, No tongue swollen, No tonsillar exudate, No trismus, No uvula swelling, No voice changes Neck: non-tender, full range of motion, supple, normal inspection Cardiovascular: regular rate, rhythm, no edema, no murmur Respiratory: chest non-tender, lungs clear, normal breath sounds, no respiratory distress, no accessory muscle use Gastrointestinal: normal bowel sounds, non tender, soft; No distended, No guarding Neurologic/Psychiatric: no motor/sensory deficits, alert, normal mood/affect Skin: normal color, warm/dry Progress/Results/Core Measures Results/Orders My Orders Orders - BERHANE VILLAR MD Amoxicillin/Clavulanate Tablet (Augmenti (11/12/21 06:19) Vital Signs/I&O 11/12/21 06:00 Temp 36.0 Pulse 83 Resp 18 B/P (MAP) 145/80 (101) Pulse Ox 99 O2 Delivery Room Air Blood Pressure Mean: 101 Progress Progress Note : Progress Note 31-year-old male with above history coming in due to dental pain. ABCs were intact and vitals were stable on presentation. He has no swelling or red flags including no fever. Given he has been on amoxicillin for 2 days, will broaden him to Augmentin. I recommended he follow-up with a dentist for [facility] given he is a [facility] patient. He says he will try this. He was then discharged home in stable condition with strict return precautions. Departure Impression Primary Impression: Dental abscess Disposition: HOME, SELF-CARE Condition: Stable Departure-Patient Inst. Decision time for Depature: 06:16 Referrals: [facility] (PCP) Primary Care Physician DESHAUN SANCHEZ APRN (Family) Primary Care Physician Patient Instructions: Dental Pain (DC) Add. Discharge Instructions: I have sent prescriptions to [facility]. Call your regular doctor and ask for a referral to the dentist at [facility] in [place]. Take ibuprofen 600 mg every 6 hours as needed for pain. If you have pain on top of that you can take the hydrocodone that was prescribed. Scripts Hydrocodone Bit/Acetaminophen (HYDROcodone/APAP 5 MG/325 MG TAB) 1 Tab Tab 1 TAB PO Q8H PRN for PAIN-SEVERE (8-10) for 3 Days, #9 TAB 0 Refills Prov: BERHANE VILLAR MD 11/12/21 Amoxicillin/Potassium Clav (Augmentin 875-125 Tablet) 1 Each Tablet 1 EACH PO BID for 7 Days, #14 TAB 0 Refills Prov: BERHANE VILLAR MD 11/12/21 Work/School Note: Work Release Form Date Seen in the Emergency Department: Nov 12, 2021 Return to Work: Nov 13, 2021 Restrictions: No Restrictions BERHANE VILLAR MD Nov 12, 2021 06:18
[2021-11-12 06:25] VITALS: BP 145/80
== END 2021-11-12 06:26 | disposition home or self-care (01) ==
LOC: EDUNIT# 05:56 → ER FS 05:59
DX: K04.7 Periapical abscess without sinus (principal); Z79.82 Long term (current) use of aspirin
CPT/HCPCS: 99283

== ENCOUNTER 2021-12-16 15:49 | Emergency (ER) | payer BC, MEDICAID ==
[~2021-12-16] VITALS: Ht 190 cm; Wt 85.0 kg
[~2021-12-16 15:49] MED LIST changes: +ACHD5005 PO; +AMOX-358 PO
--- OUTSIDE RECORDS SUMMARY | 2021-12-16 15:54 | XMS REPORT | Clinical Summary ---
Author Author [facility] Organization [facility] Address Unknown Phone Unavailable Care Team Providers Care Fun House Attendant Name Role Phone KathleenCriss barajas JOSUÉ PCP Source Comments Some departments are not documenting in the electronic medical record. If you d o not see the information that you expected, contact Release of Information in [facility] [email or web address] Information Management department at [phone] for further assistan ce in locating additional records.[facility] Allergies No known active allergies Medications [...] daily. 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
[2021-12-16 16:06] VITALS: BP 148/93
--- NOTE | 2021-12-16 16:08 | ED GU-Male ---
General Chief Complaint: - Reproductive Stated Complaint: ERECTILE DYSFUNCTION Source: patient Exam Limitations: no limitations History of Present Illness Date Seen by Provider: Dec 16, 2021 Time Seen by Provider: 15:52 Initial Comments 31-year-old male with past medical history of tachy-dorene syndrome with a pacemaker on diltiazem coming in due to erectile dysfunction. He says he has been unable to maintain an erection for over a month since he has had a new partner and is sexually active again. He says he is never noticed this issue before. He has been on diltiazem for quite a while and never had issues. His security agent that follows him is in [place]. Denies any trauma, pain, or any other concerns. Allergies and Home Medications Allergies Coded Allergies: No Known Drug Allergies (Unverified , 06/21/19) Patient Home Medication List Home Medication List Reviewed: Yes Amoxicillin/Potassium Clav (Augmentin 875-125 Tablet) 1 Each Tablet, 1 EACH PO BID Prescribed by: BERHANE VILLAR on 11/12/21 0618 Aspirin (Aspirin) 325 Mg Tablet, 325 MG PO DAILY Prescribed by: EUSEBIO MURILLO on 06/22/19 1435 Diltiazem HCl (Cardizem Cd) 120 Mg Cap.er.24h, 120 MG PO DAILY Prescribed by: BLAYNE MENDOZA on 07/22/19 1027 Hydrocodone Bit/Acetaminophen (HYDROcodone/APAP 5 MG/325 MG TAB) 1 Tab Tab, 1 TAB PO Q8H PRN for PAIN-SEVERE (8-10) Prescribed by: BERHANE VILLAR on 11/12/21 0618 Review of Systems Review of Systems Constitutional: No chills, No fever EENTM: No blurred vision Respiratory: No cough Cardiovascular: No chest pain Gastrointestinal: No abdominal pain Genitourinary: denies burning Musculoskeletal: no symptoms reported Skin: no symptoms reported Psychiatric/Neurological: No Symptoms Reported Endocrine: No Symptoms Reported Hematologic/Lymphatic: No Symptoms Reported All Other Systemes Reviewed Negative Unless Noted: Yes Past Nxwkxnv-Bkzjto-Dqbtdv Hx Patient Social History Tobacco Use?: No Use of E-Cig and/or Vaping dev: No Substance use?: No Alcohol Use?: Yes Alcohol type: Beer Alcohol Frequency: Daily Pt feels they are or have been: No Immunizations Up To Date First/Initial COVID19 Vaccinat: Not currently vaccinated Seasonal Allergies Seasonal Allergies: No Past Medical History Surgery/Hospitalization HX: Atrial fibrillation Surgeries: Yes Pacemaker Cardiac: Yes ("tachy-dorene syndrome": arrhythmia hx "heart pounding" in past) Atrial Fibrillation, Irregular Heartbeat Neurological: No Genitourinary: No Gastrointestinal: No Musculoskeletal: No Endocrine: No HEENT: No Cancer: No Did You Recieve Any Treatments: No Psychosocial: No (denies) Integumentary: No Blood Disorders: No Family Medical History No Pertinent Family Hx Physical Exam Vital Signs Capillary Refill : Height, Weight, BMI Height: 6'3.00" Weight: 161lbs. 2.0oz. 73.799654cr; 22.00 BMI Method:Stated General Appearance: WD/WN, no apparent distress HEENT: PERRL/EOMI, normal ENT inspection, pharynx normal Neck: non-tender, full range of motion, supple, normal inspection Cardiovascular: regular rate, rhythm, no edema, no murmur Respiratory: chest non-tender, lungs clear, normal breath sounds, no respiratory distress, no accessory muscle use Gastrointestinal: normal bowel sounds, non tender, soft; No distended, No guarding, No rebound Back: normal inspection, no CVA tenderness, no vertebral tenderness Extremities: normal range of motion, non-tender, normal inspection, no calf tenderness, normal capillary refill Neurologic/Psychiatric: no motor/sensory deficits, alert, normal mood/affect Skin: normal color, warm/dry Lymphatic: no adenopathy Progress/Results/Core Measures Suspected Sepsis SIRS Temperature: Pulse: Respiratory Rate: Blood Pressure / Mean: Results/Orders Vital Signs/I&O Capillary Refill : Progress Note : Progress Note 31-year-old male with above history coming in due to erectile dysfunction. ABCs were intact and vitals were stable on presentation. Physical exam with no acute abnormalities. Discussed with the patient that as an emergency medicine provider, I do not typically deal with erectile dysfunction, but recommended urology follow-up. I also gave him online resources to do a telehealth visit for potential medications for erectile dysfunction. I believe he is stable for discharge with outpatient follow-up. He was sent home with strict return precautions. Departure Impression Primary Impression: Erectile dysfunction Qualified Codes: N52.9 - Male erectile dysfunction, unspecified Disposition: HOME, SELF-CARE Condition: Stable Departure-Patient Inst. Decision time for Depature: 16:07 Referrals: DESHAUN SANCHEZ APRN (PCP/Family) Primary Care Physician Patient Instructions: Erectile Dysfunction Add. Discharge Instructions: The issues you are having could be medication related, and I recommend you following up with your security agent to determine if medication changes possible or if they think this is related. You could also try an online telehealth source that you have a conversation with a doctor and they can decide the best medicines for you if that is a good option. BERHANE VILLAR MD Dec 16, 2021 16:08
== END 2021-12-16 16:10 | disposition home or self-care (01) ==
LOC: EDUNIT# 15:49 → ER FS 15:50
DX: N52.9 Male erectile dysfunction, unspecified (principal); Z79.82 Long term (current) use of aspirin
CPT/HCPCS: 99282

== ENCOUNTER 2022-04-15 17:26 | Emergency (ER) | payer BC, MEDICAID ==
[2022-04-15] MEDS ORDERED: NS IV 1000 ML 1,000 ML IV SCH (17:45)
[2022-04-15] MEDS ORDERED: ONDANSETRON 4 MG/2 ML (SDV) Z0FRAN IV ONE (17:45)
[2022-04-15 17:50] LABS: BASOPHILS # (AUTO) 0.1 10^3/uL (0.0-0.1); BASOPHILS % (AUTO) 1 % (0-10); EOSINOPHILS % (AUTO) 0 % (0-10); HEMATOCRIT 46 % (40-54); HEMOGLOBIN 16.7 g/dL (13.3-17.7); LYMPHOCYTES # (AUTO) 0.5 10^3/uL (1.0-4.0); LYMPHOCYTES % (AUTO) 6 % (12-44); MEAN CORPUSCULAR HEMOGLOBIN 31 pg (25-34); MEAN CORPUSCULAR HGB CONC 36 g/dL (32-36); MEAN CORPUSCULAR VOLUME 85 fL (80-99); MEAN PLATELET VOLUME 9.8 fL (9.0-12.2); MONOCYTES # (AUTO) 1.1 10^3/uL (0.0-1.0); MONOCYTES % (AUTO) 13 % (0-12); NEUTROPHILS # (AUTO) 7.3 10^3/uL (1.8-7.8); NEUTROPHILS % (AUTO) 81 % (42-75); PLATELET COUNT 169 10^3/uL (130-400)
[2022-04-15 17:59] LABS: PROTHROMBIN TIME PATIENT 13.1 SEC (12.2-14.7)
[2022-04-15 18:10] LABS: POTASSIUM 4.3 MMOL/L (3.6-5.0); SODIUM 133 MMOL/L (135-145)
[2022-04-15 18:11] LABS: ALANINE AMINOTRANSFERASE 14 U/L (0-55); ALBUMIN 4.6 GM/DL (3.2-4.5); ALKALINE PHOSPHATASE 91 U/L (40-136); BILIRUBIN,TOTAL 0.8 MG/DL (0.1-1.0); BUN/CREATININE RATIO 9; CALCIUM 9.2 MG/DL (8.5-10.1); CARBON DIOXIDE 19 MMOL/L (21-32); CHLORIDE 102 MMOL/L (98-107); CREATININE SERUM 0.96 MG/DL (0.60-1.30); GFR ESTIMATED 107; GLUCOSE 114 MG/DL (70-105); TOTAL PROTEIN 7.6 GM/DL (6.4-8.2)
[2022-04-15] MEDS ORDERED: HOLD METFORMIN - RECEIVED CONTRAST 20 ML VIAL IV SCH (18:15)
[2022-04-15] MEDS ORDERED: IOHEXOL 350 MG/ML 100 ML (OMNIPAQUE 350) VIAL IV ONE (18:15)
[2022-04-15] MEDS ORDERED: NS 100 ML (IVPB) BAG IV ONE (18:15)
[2022-04-15 18:26] LABS: BAND NEUTROPHILS 19 %; BASOPHILS % (MANUAL) 0 %; EOSINOPHILS % (MANUAL) 0 %; LYMPHOCYTES % (MANUAL) 6 %; MONOCYTES % (MANUAL) 12 %; NEUTROPHILS % (MANUAL) 63 %; PLATELET ESTIMATE NORMAL; RBC MORPH NORMAL
--- NOTE | 2022-04-15 18:30 | ED General ---
General Chief Complaint: General Problems/Pain Stated Complaint: VOMITING; HEADACHE Nursing Triage Note: PT REPORTS HE HAS HAD A HEADACHE AND OFF ANF ON VOMITING SINCE 1000. REPORTS SOME NASAL CONGESTION WELL. HIS KIDS HAVE BEEN SICK WITH THE SAME THING BUT HE STATES HE IS WAY WORSE THAN THEY WERE. Source of Information: Patient History of Present Illness Date Seen by Provider: April 15, 2022 Time Seen by Provider: 17:31 Initial Comments 31-year-old male presenting with complaints of frontal headache and generalized abdominal pain. He states he has been having nausea and vomiting since this morning. He has been around his children who were sick with something similar this last weekend. However they got over their symptoms a lot faster. He denies any exposure to anyone else that has been sick. He has felt like he had a fever and chills but his temperature has been normal. He had no diarrhea but has had some abdominal cramping. He denies any pain with urination. Timing/Duration: 12-24 Hours Severity: Severe Modifying Factors: worse with Eating, worse with Movement Associated Systoms: No Chest Pain, No Cough; Diaphoresis, Fever/Chills (subjective), Headaches, Loss of Appetite, Malaise, Nausea/Vomiting; No Rash, No Seizure, No Shortness of Air, No Syncope; Weakness (generalized) Allergies and Home Medications Allergies Coded Allergies: No Known Drug Allergies (Unverified , 06/21/19) Patient Home Medication List Home Medication List Reviewed: Yes Amoxicillin/Potassium Clav (Augmentin 875-125 Tablet) 1 Each Tablet, 1 EACH PO BID Prescribed by: BERHANE VILLAR on 11/12/2118 Aspirin (Aspirin) 325 Mg Tablet, 325 MG PO DAILY Prescribed by: EUSEBIO MURILLO on 06/22/19 1435 Diltiazem HCl (Cardizem Cd) 120 Mg Cap.er.24h, 120 MG PO DAILY Prescribed by: BLAYNE MENDOZA on 07/22/19 1027 Hydrocodone Bit/Acetaminophen (HYDROcodone/APAP 5 MG/325 MG TAB) 1 Tab Tab, 1 TAB PO Q8H PRN for PAIN-SEVERE (8-10) Prescribed by: BERHANE VILLAR on 11/12/21 0618 Ondansetron (Ondansetron Odt) 4 Mg Tab.rapdis, 4 MG PO Q6H PRN for NAUSEA/VOMITING Prescribed by: OMAR VAZQUEZ on 04/15/222006 Review of Systems Review of Systems Constitutional: see HPI EENTM: see HPI, nose congestion; No epistaxis Respiratory: No cough, No short of breath Cardiovascular: No chest pain Gastrointestinal: abdominal pain (diffuse), loss of appetite, nausea, vomiting Genitourinary: No dysuria, No hematuria Musculoskeletal: muscle pain (generalized body aches) Skin: No rash Psychiatric/Neurological: Headache (frontal) Hematologic/Lymphatic: Denies Blood Clots Past Npaxnsg-Jcwwar-Zjalnb Hx Patient Social History Tobacco Use?: No Alcohol Use?: No Immunizations Up To Date First/Initial COVID19 Vaccinat: Not currently vaccinated Second COVID19 Vaccination Wilmer: Not currently vaccinated Third COVID19 Vaccination Date: Not currently vaccinated Seasonal Allergies Seasonal Allergies: No Past Medical History Surgery/Hospitalization HX: Atrial fibrillation, Pacemaker, Surgeries: Yes Pacemaker 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 2.0oz. 73.449803xj; 23.00 BMI Method:Stated General Appearance: Anxious, Mild Distress, Thin HEENT: PERRL/EOMI, Pharynx Normal Neck: Full Range of Motion, Normal Inspection, Non Tender, Supple Respiratory: Chest Non Tender, Lungs Clear, Normal Breath Sounds, No Accessory Muscle Use, No Respiratory Distress Cardiovascular: Regular Rate, Rhythm, Normal Peripheral Pulses Gastrointestinal: Normal Bowel Sounds, No Pulsatile Mass, Soft; No Distended; Guarding; No Rebound; Tenderness (diffuse) Rectal: Deferred Extremity: Normal Capillary Refill, Normal Inspection, No Pedal Edema Neurologic/Psychiatric: Alert, 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, 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 Norm as Tested Skin: Normal Color, Warm/Dry Focused Exam Lactate Level 04/15/22 17:45: Lactic Acid Level 0.81 Lactic Acid Level Laboratory Tests Test 04/15/22 17:45 Lactic Acid Level 0.81 MMOL/L (0.50-2.00) Progress/Results/Core Measures Suspected Sepsis SIRS Temperature: Pulse: 71 Respiratory Rate: 18 Laboratory Tests 04/15/22 17:35: White Blood Count 9.0 Blood Pressure 128 /72 Mean: 90 04/15/22 17:45: Lactic Acid Level 0.81 Laboratory Tests 04/15/22 17:35: Creatinine 0.96, INR Comment 1.0, Platelet Count 169, Total Bilirubin 0.8 Results/Orders Lab Results Laboratory Tests Test 04/15/22 17:35 04/15/22 17:40 04/15/22 17:45 04/15/22 19:06 Range/Units White Blood Count 9.0 4.3-11.0 10^3/uL Red Blood Count 5.41 4.30-5.52 10^6/uL Hemoglobin 16.7 13.3-17.7 g/dL Hematocrit 46 40-54 % Mean Corpuscular Volume 85 80-99 fL Mean Corpuscular Hemoglobin 31 25-34 pg Mean Corpuscular Hemoglobin Concent 36 32-36 g/dL Red Cell Distribution Width 12.6 10.0-14.5 % Platelet Count 169 130-400 10^3/uL Mean Platelet Volume 9.8 9.0-12.2 fL Immature Granulocyte % (Auto) 0 % Neutrophils (%) (Auto) 81 H 42-75 % Lymphocytes (%) (Auto) 6 L 12-44 % Monocytes (%) (Auto) 13 H 0-12 % Eosinophils (%) (Auto) 0 0-10 % Basophils (%) (Auto) 1 0-10 % Neutrophils # (Auto) 7.3 1.8-7.8 10^3/uL Lymphocytes # (Auto) 0.5 L 1.0-4.0 10^3/uL Monocytes # (Auto) 1.1 H 0.0-1.0 10^3/uL Eosinophils # (Auto) 0.0 0.0-0.3 10^3/uL Basophils # (Auto) 0.1 0.0-0.1 10^3/uL Immature Granulocyte # (Auto) 0.0 0.0-0.1 10^3/uL Neutrophils % (Manual) 63 % Lymphocytes % (Manual) 6 % Monocytes % (Manual) 12 % Eosinophils % (Manual) 0 % Basophils % (Manual) 0 % Band Neutrophils 19 % Platelet Estimate NORMAL Blood Morphology Comment NORMAL Prothrombin Time 13.1 12.2-14.7 SEC INR Comment 1.0 0.8-1.4 Activated Partial Thromboplast Time 30 24-35 SEC Sodium Level 133 L 135-145 MMOL/L Potassium Level 4.3 3.6-5.0 MMOL/L Chloride Level 102 98-107 MMOL/L Carbon Dioxide Level 19 L 21-32 MMOL/L Anion Gap 12 5-14 MMOL/L Blood Urea Nitrogen 9 7-18 MG/DL Creatinine 0.96 0.60-1.30 MG/DL Estimat Glomerular Filtration Rate 107 BUN/Creatinine Ratio 9 Glucose Level 114 H 70-105 MG/DL Calcium Level 9.2 8.5-10.1 MG/DL Corrected Calcium 8.5-10.1 MG/DL Total Bilirubin 0.8 0.1-1.0 MG/DL Aspartate Amino Transf (AST/SGOT) 18 5-34 U/L Alanine Aminotransferase (ALT/SGPT) 14 0-55 U/L Alkaline Phosphatase 91 40-136 U/L Troponin I < 0.30 <0.30 NG/ML C-Reactive Protein 3.32 H <0.50 MG/DL Total Protein 7.6 6.4-8.2 GM/DL Albumin 4.6 H 3.2-4.5 GM/DL Influenza Type A Antigen NEGATIVE NEGATIVE Influenza Type B Antigen NEGATIVE NEGATIVE Lactic Acid Level 0.81 0.50-2.00 MMOL/L Urine Color YELLOW Urine Clarity CLEAR Urine pH 6.0 5-9 Urine Specific [place] <=1.005 1.016-1.022 Urine Protein NEGATIVE NEGATIVE Urine Glucose (UA) NEGATIVE NEGATIVE Urine Ketones NEGATIVE NEGATIVE Urine Nitrite NEGATIVE NEGATIVE Urine Bilirubin NEGATIVE NEGATIVE Urine Urobilinogen 0.2 < = 1.0 MG/DL Urine Leukocyte Esterase NEGATIVE NEGATIVE Urine RBC (Auto) NEGATIVE NEGATIVE Urine RBC NONE /HPF Urine WBC NONE /HPF Urine Squamous Epithelial Cells 0-2 /HPF Urine Crystals NONE /LPF Urine Bacteria NEGATIVE /HPF Urine Casts NONE /LPF Urine Mucus NEGATIVE /LPF Urine Culture Indicated NO My Orders Orders - ENSYLVESTERRT,OMAR E MD Monitor-Rhythm Ecg Trace Only (04/15/22 17:40) Ed Iv/Invasive Line Start (04/15/22 17:40) Cbc With Automated Diff (04/15/22 17:40) Comprehensive Metabolic Panel (04/15/22 17:40) Crp Fs (04/15/22 17:40) Troponin I Fs (04/15/22 17:40) Protime With Inr (04/15/22 17:40) Partial Thromboplastin Time (04/15/22 17:40) Ekg Tracing (04/15/22 17:40) Ns Iv 1000 Ml (Sodium Chloride 0.9%) (04/15/22 17:45) Ondansetron Injection (Zofran Injectio (04/15/22 17:45) Ct Head Wo (04/15/22 17:40) Ct Abdomen/Pelvis W (04/15/22 17:40) Blood Culture (04/15/22 17:40) Lactic Acid Analyzer (04/15/22 17:40) Covid 19 Inhouse Test (04/15/22 17:40) Isolation Central Supply Req (04/15/22 17:40) Influenza A & B Antigens (04/15/22 17:40) Manual Differential (04/15/22 17:35) Iohexol Injection (Omnipaque 350 Mg/Ml 1 (04/15/22 18:15) Received Contrast (Hold Metformin- Contr (04/15/22 18:15) Ns (Ivpb) (Sodium Chloride 0.9% Ivpb Bag (04/15/22 18:15) Ketorolac Injection (Toradol Injection) (04/15/22 18:32) Pantoprazole Injection (Protonix Injecti (04/15/22 18:32) Ua Culture If Indicated (04/15/22 18:56) Ns Iv 1000 Ml (Sodium Chloride 0.9%) (04/15/22 19:05) Dexamethasone Injection (Decadron Inje (04/15/22 19:05) Rx-Ondansetron Po (Rx-Zofran Po) (04/15/22 20:15) Medications Given in ED Current Medications Medications Dose Ordered Sig/Malcolm Route Start Time Stop Time Status Last Admin Dose Admin Ondansetron HCl 4 mg ONCE ONCE IV 04/15/22 17:45 04/15/22 17:46 DC 04/15/22 17:56 4 MG Ondansetron HCl 4 mg Q6H PRN PO 04/15/22 20:15 04/15/22 20:19 DC 04/15/22 20:16 4 MG Vital Signs/I&O 04/15/22 04/15/22 17:39 20:17 Temp 36.6 Pulse 71 82 Resp 18 14 B/P (MAP) 128/72 (90) 128/82 Pulse Ox 98 99 O2 Delivery Room Air Room Air 04/16/22 00:00 Intake Total 2000 ml Balance 2000 ml Capillary Refill : Less Than 3 Seconds Blood Pressure Mean: 90 Progress Note #1: Progress Note Check labs as well as COVID and Influenza swab. CT scan of his head since he was having frontal headache. CT scan of his abdomen and pelvis since he was having severe pain with nausea and vomiting. Urinalysis to evaluate for his hydration status. Urine drug screen to look for any substances in his system that might be contributing to the nausea, vomiting, headache. Progress Note #2: Progress Note Influenza was negative. EKG did not show any acute ischemic changes. The CT scan of the head was negative. CT scan of the abdomen and pelvis did not show any acute abnormality. Labs. Stable without acute significant abnormality. He had no elevation in his white blood cell count. Overall his chemistry panel was stable as well. Patient was feeling a little better after the initial bag of fluid and medications. Will repeat a normal saline 1 L IV fluid bolus for extra hydration and give Decadron 10 mg IV to try and help with headache. Progress Note #3: Progress Note Urinalysis does not show any acute abnormality. His symptoms are improved after the second bag of fluids and Decadron. Counseled on follow-up and return precautions. Advised to quarantine until he had negative COVID results. ECG Initial ECG Impression Date: April 15, 2022 Initial ECG Impression Time: 18:23 Initial ECG Rate: 69 Initial ECG Rhythm: Normal Sinus (Electronic atrial paced rhythm) Initial ECG Comparisson: No Previous ECG Available Comment Electronic atrial paced rhythm with a heart rate of 69 bpm. 177 ms [place] interval. No acute ST elevation. QT interval 382 ms with a QTc interval 401 ms. There is no prior tracing immediately available for comparison. Diagnostic Imaging Diagonstic Imaging: CT Plain Films/CT/US/NM/MRI: head Comments [facility], [place] NAME: LUIS ARMANDO [facility] REC#: [id number] PT STATUS: REG ER : 1990 PHYSICIAN: OMAR VAZQUEZ MD ADMIT DATE: 04/15/22/ER FS Signed Date of Exam:04/15/22 CT HEAD WO EXAMINATION: CT head without contrast. TECHNIQUE: Multiple contiguous axial images were obtained through the brain without the use of intravenous contrast. All CT scans use one or more of the following dose optimizing techniques: automated exposure control, MA and/or KvP adjustment based on patient size and exam type or iterative reconstruction. HISTORY: Headache, nausea and vomiting COMPARISON: 05/29/2021 FINDINGS: The ventricles and sulci are normal. No abnormal attenuation of brain parenchyma is present. No acute intracranial hemorrhage or abnormal extra-axial fluid collections are present. No hyperdense vessel. The calvarium is intact. The mastoid air cells are clear. The visualized paranasal sinuses are clear. The orbits are normal. IMPRESSION: 1. No acute intracranial abnormality. Dictated by: Dictated on workstation # [id number] Dict: 04/15/22 1838 Trans: 04/15/221903 [facility] [id number] Interpreted by: SCOTTY CID DO Electronically signed by: SCOTTY CID DO 04/15/221903 Reviewed: Reviewed by Tn Diagonstic Imaging: CT Plain Films/CT/US/NM/MRI: abdomen, pelvis Comments [facility] [place] NAME: LUIS ARMANDO [facility] REC#: [id number] PT STATUS: REG ER : 1990 PHYSICIAN: OMAR VAZQUEZ MD ADMIT DATE: 04/15/22/ER FS Signed Date of Exam:04/15/22 CT ABDOMEN/PELVIS W EXAMINATION: CT abdomen and pelvis with intravenous contrast. TECHNIQUE: Multiple contiguous axial images were obtained through the abdomen and pelvis after the uneventful administration of intravenous contrast. All CT scans use one or more of the following dose optimizing techniques: automated exposure control, MA and/or KvP adjustment based on patient size and exam type or iterative reconstruction. HISTORY: Nausea, vomiting, abdominal pain COMPARISON: None available. FINDINGS: Lung bases: Bibasilar dependent atelectasis. Solid organs: The liver is normal without focal lesion. The gallbladder is normal. There is no biliary ductal dilation. Pancreas is normal. Spleen is normal. Adrenal glands are normal. The kidneys are normal without hydronephrosis. Bowel: The stomach and small bowel are normal without obstruction. The colon and appendix are normal. Peritoneum: There is no intraperitoneal free fluid or free air. No suspicious lymphadenopathy. Vasculature: Normal without aneurysm. Musculoskeletal: No suspicious osseous lesion or compression fracture. Small ventral abdominal wall fat-containing hernia. Pelvis: The prostate gland is normal. The urinary bladder is normal. IMPRESSION: 1. No acute abnormality in the abdomen or pelvis. Dictated by: Dictated on workstation # [id number] Dict: 04/15/22 1844 Trans: 04/15/221903 [facility] [id number] Interpreted by: SCOTTY CID DO Electronically signed by: SCOTTY CID DO 04/15/224 Reviewed: Reviewed by Me Departure Impression Primary Impression: Severe frontal headaches Additional Impressions: Diffuse abdominal pain Nausea and vomiting in adult patient Acute viral syndrome Person under investigation for severe acute respiratory syndrome coronavirus 2 (SARS-CoV-2) infection Disposition: 01 HOME, SELF-CARE Condition: Stable Departure-Patient Inst. Decision time for Depature: 20:04 Referrals: DESHAUN SANCHEZ APRN (PCP) Primary Care Physician [facility] (Family) Primary Care Physician Patient Instructions: COVID-19 ED, Headache, Adult ED, Nausea and Vomiting, Adult ED, Viral Syndrome (DC) Add. Discharge Instructions: Stay well-hydrated and get plenty of rest. Make sure you are drinking plenty of fluids. Use the nausea medicine to help keep your stomach settled so you could drink better. Continue with acetaminophen and ibuprofen as needed to help control your headache and body aches. Check back with the clinic if not improving in the next 3 to 4 days. You should quarantine until you have a negative COVID result. The COVID result from [facility] will be called to you in 24 to 48 hours. Until then you should stay home and wear a mask and quarantine from other people. If your test comes back positive you should wear a mask and stay quarantined for 5 days or until your symptoms have resolved. All discharge instructions reviewed with patient and/or family. Voiced understanding. Scripts Ondansetron (Ondansetron Odt) 4 Mg Tab.rapdis 4 MG PO Q6H PRN for NAUSEA/VOMITING for 5 Days, #20 TAB 0 Refills Prov: OMAR VAZQUEZ MD 04/15/22 Work/School Note: Work Release Form Date Seen in the Emergency Department: April 15, 2022 Return to Work: April 18, 2022 Restrictions: Return-No Vomiting(24hrs) Other Restrictions Listed Below: Quarantine until you have Negative Covid result. OMAR VAZQUEZ MD April 15, 2022 18:30
[2022-04-15] MEDS ORDERED: KETOROLAC 30 MG/ML VIAL IVP STA (18:32)
[2022-04-15] MEDS ORDERED: PANTOPRAZOLE 40 MG (PROTONIX) VIAL IV STA (18:32)
--- NOTE | 2022-04-15 18:42 | Diagnostic Imaging Report ---
EXAMINATION: CT head without contrast. TECHNIQUE: Multiple contiguous axial images were obtained through the brain without the use of intravenous contrast. All CT scans use one or more of the following dose optimizing techniques: automated exposure control, MA and/or KvP adjustment based on patient size and exam type or iterative reconstruction. HISTORY: Headache, nausea and vomiting COMPARISON: 05/29/2021 FINDINGS: The ventricles and sulci are normal. No abnormal attenuation of brain parenchyma is present. No acute intracranial hemorrhage or abnormal extra-axial fluid collections are present. No hyperdense vessel. The calvarium is intact. The mastoid air cells are clear. The visualized paranasal sinuses are clear. The orbits are normal. IMPRESSION: 1. No acute intracranial abnormality. Dictated by: Dictated on workstation # [id number]
--- NOTE | 2022-04-15 18:49 | Diagnostic Imaging Report ---
EXAMINATION: CT abdomen and pelvis with intravenous contrast. TECHNIQUE: Multiple contiguous axial images were obtained through the abdomen and pelvis after the uneventful administration of intravenous contrast. All CT scans use one or more of the following dose optimizing techniques: automated exposure control, MA and/or KvP adjustment based on patient size and exam type or iterative reconstruction. HISTORY: Nausea, vomiting, abdominal pain COMPARISON: None available. FINDINGS: Lung bases: Bibasilar dependent atelectasis. Solid organs: The liver is normal without focal lesion. The gallbladder is normal. There is no biliary ductal dilation. Pancreas is normal. Spleen is normal. Adrenal glands are normal. The kidneys are normal without hydronephrosis. Bowel: The stomach and small bowel are normal without obstruction. The colon and appendix are normal. Peritoneum: There is no intraperitoneal free fluid or free air. No suspicious lymphadenopathy. Vasculature: Normal without aneurysm. Musculoskeletal: No suspicious osseous lesion or compression fracture. Small ventral abdominal wall fat-containing hernia. Pelvis: The prostate gland is normal. The urinary bladder is normal. IMPRESSION: 1. No acute abnormality in the abdomen or pelvis. Dictated by: Dictated on workstation # [id number]
[2022-04-15] MEDS ORDERED: NS IV 1000 ML 1,000 ML IV STA (19:05)
[2022-04-15 19:13] LABS: BILIRUBIN,URINE NEGATIVE (NEGATIVE); CLARITY,URINE CLEAR; COLOR,URINE YELLOW; GLUCOSE, URINE (UA) NEGATIVE (NEGATIVE); KETONES,URINE NEGATIVE (NEGATIVE); LEUKOCYTE ESTERASE ,URINE NEGATIVE (NEGATIVE); NITRITE,URINE NEGATIVE (NEGATIVE); PROTEIN,URINE NEGATIVE (NEGATIVE)
[2022-04-15 19:17] LABS: BACTERIA,URINE NEGATIVE /HPF; SQUAMOUS EPITHELIAL CELL,UR 0-2 /HPF
[2022-04-15] MEDS ORDERED: ONDA4TAB11 PO (20:07)
[2022-04-15] MEDS ORDERED: RX-ONDANSETRON 4 MG ODT (ZOFRAN) PPK #4 PO PRN (20:15)
[2022-04-15 20:17] VITALS: BP 128/82
== END 2022-04-15 20:18 | disposition home or self-care (01) ==
LOC: EDUNIT# 17:26 → ER FS 17:27
DX: B34.9 Viral infection, unspecified (principal); Z20.822 Contact with and (suspected) exposure to COVID-19; Z28.310 Unvaccinated for COVID-19
CPT/HCPCS: 36415; 70450; 74177; 80053; 81000; 83605; 84484; 85007; 85027; 85610; 85730; 86141; 87040; 87636; 87804; 93005; 93041; Q9967

== ENCOUNTER 2023-02-26 12:13 | Emergency (ER) | payer BC, MEDICAID ==
[~2023-02-26] VITALS: Ht 193 cm; Wt 80.0 kg
[~2023-02-26 12:13] MED LIST changes: +ONDA4TAB11 PO
--- NOTE | 2023-02-26 12:28 | ED Abdominal Pain ---
General Stated Complaint: RT EPIGASTRIC PAIN History of Present Illness Date Seen by Provider: Feb 26, 2023 Time Seen by Provider: 12:28 Initial Comments 32-year-old male presents with abdominal pain. Patient reports that he has been having pain on and off for about 2 weeks but over the last 2 days is got significant worse especially after he eats. He cannot really bend over to take a deep breath worsening pain. Its more in the right mid abdomen. Allergies and Home Medications Allergies Coded Allergies: No Known Drug Allergies (Unverified , 06/21/19) Patient Home Medication List Home Medication List Reviewed: Yes Amoxicillin/Potassium Clav (Augmentin 875-125 Tablet) 1 Each Tablet, 1 EACH PO BID Prescribed by: BERHANE VILLAR on 11/12/21 0618 Aspirin (Aspirin) 325 Mg Tablet, 325 MG PO DAILY Prescribed by: EUSEBIO MURILLO on 06/22/19 1435 Diltiazem HCl (Cardizem Cd) 120 Mg Cap.er.24h, 120 MG PO DAILY Prescribed by: BLAYNE MENDOZA on 07/22/19 1027 Hydrocodone Bit/Acetaminophen (HYDROcodone/APAP 5 MG/325 MG TAB) 1 Tab Tab, 1 TAB PO Q8H PRN for PAIN-SEVERE (8-10) Prescribed by: BERHANE VILLAR on 11/12/21 0618 Ondansetron (Ondansetron Odt) 4 Mg Tab.rapdis, 4 MG PO Q6H PRN for NAUSEA/VOMITING Prescribed by: OMAR VAZQUEZ on 04/15/222006 Review of Systems Review of Systems Constitutional: No chills, No fever Respiratory: No Symptoms Reported Cardiovascular: No Symptoms Reported Gastrointestinal: Abdominal Pain, Nausea Genitourinary: No Symptoms Reported Musculoskeletal: No back pain Skin: no symptoms reported Psychiatric/Neurological: No Symptoms Reported Endocrine: No Symptoms Reported Past Qhrpnaz-Sppfaa-Qsdvnj Hx Immunizations Up To Date First/Initial COVID19 Vaccinat: Not currently vaccinated Second COVID19 Vaccination Wilmer: Not currently vaccinated Third COVID19 Vaccination Date: Not currently vaccinated Seasonal Allergies Seasonal Allergies: No Past Medical History Surgery/Hospitalization HX: Atrial fibrillation, Pacemaker, Surgeries: Yes Pacemaker 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 2.0oz. 73.767872fn; 23.00 BMI Method:Stated General Appearance: WD/WN, other (Uncomfortable) Respiratory: lungs clear, normal breath sounds Cardiovascular: normal peripheral pulses, regular rate, rhythm Gastrointestinal: soft, guarding, tenderness Extremities: normal range of motion, non-tender Neurologic/Psychiatric: alert, normal mood/affect, oriented x 3 Skin: normal color, warm/dry Progress/Results/Core Measures Results/Orders Lab Results Laboratory Tests Test 02/26/23 12:32 02/26/23 12:47 Range/Units White Blood Count 10.2 4.3-11.0 10^3/uL Red Blood Count 4.97 4.30-5.52 10^6/uL Hemoglobin 15.6 13.3-17.7 g/dL Hematocrit 43 40-54 % Mean Corpuscular Volume 87 80-99 fL Mean Corpuscular Hemoglobin 31 25-34 pg Mean Corpuscular Hemoglobin Concent 36 32-36 g/dL Red Cell Distribution Width 12.1 10.0-14.5 % Platelet Count 187 130-400 10^3/uL Mean Platelet Volume 10.2 9.0-12.2 fL Immature Granulocyte % (Auto) 0 % Neutrophils (%) (Auto) 73 42-75 % Lymphocytes (%) (Auto) 17 12-44 % Monocytes (%) (Auto) 8 0-12 % Eosinophils (%) (Auto) 1 0-10 % Basophils (%) (Auto) 0 0-10 % Neutrophils # (Auto) 7.5 1.8-7.8 10^3/uL Lymphocytes # (Auto) 1.7 1.0-4.0 10^3/uL Monocytes # (Auto) 0.9 0.0-1.0 10^3/uL Eosinophils # (Auto) 0.1 0.0-0.3 10^3/uL Basophils # (Auto) 0.0 0.0-0.1 10^3/uL Immature Granulocyte # (Auto) 0.0 0.0-0.1 10^3/uL Sodium Level 138 135-145 MMOL/L Potassium Level 4.8 3.6-5.0 MMOL/L Chloride Level 103 98-107 MMOL/L Carbon Dioxide Level 25 21-32 MMOL/L Anion Gap 10 5-14 MMOL/L Blood Urea Nitrogen 11 7-18 MG/DL Creatinine 1.04 0.60-1.30 MG/DL Estimat Glomerular Filtration Rate 97 BUN/Creatinine Ratio 11 Glucose Level 99 70-105 MG/DL Calcium Level 9.5 8.5-10.1 MG/DL Corrected Calcium 8.5-10.1 MG/DL Total Bilirubin 0.6 0.1-1.0 MG/DL Aspartate Amino Transf (AST/SGOT) 25 5-34 U/L Alanine Aminotransferase (ALT/SGPT) 19 0-55 U/L Alkaline Phosphatase 83 40-136 U/L C-Reactive Protein 0.47 <0.50 MG/DL Total Protein 7.5 6.4-8.2 GM/DL Albumin 4.6 H 3.2-4.5 GM/DL Lipase 38 8-78 U/L Urine Color YELLOW Urine Clarity CLEAR Urine pH 7.0 5-9 Urine Specific [place] 1.025 H 1.016-1.022 Urine Protein NEGATIVE NEGATIVE Urine Glucose (UA) NEGATIVE NEGATIVE Urine Ketones NEGATIVE NEGATIVE Urine Nitrite NEGATIVE NEGATIVE Urine Bilirubin NEGATIVE NEGATIVE Urine Urobilinogen 0.2 < = 1.0 MG/DL Urine Leukocyte Esterase NEGATIVE NEGATIVE Urine RBC (Auto) NEGATIVE NEGATIVE Urine RBC NONE /HPF Urine WBC 0-2 /HPF Urine Squamous Epithelial Cells RARE /HPF Urine Crystals NONE /LPF Urine Bacteria NEGATIVE /HPF Urine Casts NONE /LPF Urine Mucus NEGATIVE /LPF Urine Culture Indicated NO My Orders Orders - PRINCESS CHOIVOR L DO Cbc With Automated Diff (02/26/23 12:30) Comprehensive Metabolic Panel (02/26/23 12:30) Lipase (02/26/23 12:30) Ua Culture If Indicated (02/26/23 12:30) Crp Fs (02/26/23 12:30) Ondansetron Injection (Zofran Injectio (02/26/23 12:30) Ns Iv 1000 Ml (Sodium Chloride 0.9%) (02/26/23 12:30) Ketorolac Injection (Toradol Injection) (02/26/23 12:30) Lidocaine 2% Viscous 15 Ml (Xylocaine Vi (02/26/23 13:15) Antacid Suspension (Mylanta Suspension (02/26/23 13:15) Famotidine Injection (Pepcid Injection) (02/26/23 13:13) Abdomen Flat & Upright/Decub (02/26/23 13:35) Hyoscyamine Sl Tablet (Levsin Sl Tablet) (02/26/23 13:45) Medications Given in ED Current Medications Medications Dose Ordered Sig/Malcolm Route Start Time Stop Time Status Last Admin Dose Admin Al Hydrox/Mg Hydrox/Simethicone 30 ml ONCE ONCE PO 02/26/23 13:15 02/26/23 13:16 DC 02/26/23 13:18 30 ML Hyoscyamine Sulfate 0.125 mg ONCE ONCE PO 02/26/23 13:45 02/26/23 13:46 DC 02/26/23 13:41 0.125 MG Lidocaine HCl 15 ml ONCE ONCE PO 02/26/23 13:15 02/26/23 13:16 DC 02/26/23 13:18 15 ML Ondansetron HCl 4 mg ONCE ONCE IVP 02/26/23 12:30 02/26/23 12:32 DC 02/26/23 12:37 4 MG Vital Signs/I&O 02/26/23 12:20 Temp 36.5 Pulse 70 Resp 16 B/P (MAP) 129/73 (91) Pulse Ox 100 O2 Delivery Room Air Progress Progress Note : Progress Note Patient's diagnostic studies were ordered and reviewed interpreted by me. Patient has no acute findings on his labs that are concerning. Patient's x-ray was reviewed with initial interpretation of constipation with final interpretation per radiology report. Patient likely has some mild gastritis may be early ulcer with constipation. I discussed with him that he needs to start famotidine twice daily along with MiraLAX and mag citrate. Patient should increase fiber in his diet. Patient stable and discharged Departure Impression Primary Impression: Constipation Qualified Codes: K59.00 - Constipation, unspecified Additional Impression: Gastritis Qualified Codes: K29.70 - Gastritis, unspecified, without bleeding Disposition: HOME, SELF-CARE Condition: Stable Departure-Patient Inst. Referrals: DESHAUN SANCHEZ APRN (PCP) Primary Care Physician [facility] (Family) Primary Care Physician Patient Instructions: Constipation, Adult (DC), Gastritis Add. Discharge Instructions: Please increase fluids and fiber in your diet. You may use MiraLAX 2-3 times daily as needed for soft daily stool. You may try 1 bottle of mag citrate to help with your immediate constipation discomfort. Also recommend you start Pepcid/famotidine twice daily for the next 14 days. Follow-up with your primary care provider if symptoms have not resolved over the next couple days. Work/School Note: Work Release Form Date Seen in the Emergency Department: Feb 26, 2023 Return to Work: Feb 27, 2023 KAISER CHOI DO Feb 26, 2023 12:28
[2023-02-26] MEDS ORDERED: KETOROLAC 30 MG/ML VIAL IVP STA (12:30)
[2023-02-26] MEDS ORDERED: ONDANSETRON 4 MG/2 ML (SDV) Z0FRAN IVP ONE (12:30)
[2023-02-26] MEDS ORDERED: NS IV 1000 ML 1,000 ML IV STA (12:30)
[2023-02-26 12:39] LABS: BASOPHILS % (AUTO) 0 % (0-10); EOSINOPHILS # (AUTO) 0.1 10^3/uL (0.0-0.3); EOSINOPHILS % (AUTO) 1 % (0-10); HEMATOCRIT 43 % (40-54); HEMOGLOBIN 15.6 g/dL (13.3-17.7); LYMPHOCYTES # (AUTO) 1.7 10^3/uL (1.0-4.0); LYMPHOCYTES % (AUTO) 17 % (12-44); MEAN CORPUSCULAR HEMOGLOBIN 31 pg (25-34); MEAN CORPUSCULAR HGB CONC 36 g/dL (32-36); MEAN CORPUSCULAR VOLUME 87 fL (80-99); MEAN PLATELET VOLUME 10.2 fL (9.0-12.2); MONOCYTES # (AUTO) 0.9 10^3/uL (0.0-1.0); MONOCYTES % (AUTO) 8 % (0-12); NEUTROPHILS # (AUTO) 7.5 10^3/uL (1.8-7.8); NEUTROPHILS % (AUTO) 73 % (42-75); PLATELET COUNT 187 10^3/uL (130-400); WHITE BLOOD COUNT 10.2 10^3/uL (4.3-11.0)
[2023-02-26 13:00] LABS: BUN/CREATININE RATIO 11; CALCIUM 9.5 MG/DL (8.5-10.1); CARBON DIOXIDE 25 MMOL/L (21-32); CHLORIDE 103 MMOL/L (98-107); CREATININE SERUM 1.04 MG/DL (0.60-1.30); GFR ESTIMATED 97; GLUCOSE 99 MG/DL (70-105); POTASSIUM 4.8 MMOL/L (3.6-5.0); SODIUM 138 MMOL/L (135-145)
[2023-02-26 13:01] LABS: ALANINE AMINOTRANSFERASE 19 U/L (0-55); ALBUMIN 4.6 GM/DL (3.2-4.5); ALKALINE PHOSPHATASE 83 U/L (40-136); BILIRUBIN,TOTAL 0.6 MG/DL (0.1-1.0); LIPASE 38 U/L (8-78); TOTAL PROTEIN 7.5 GM/DL (6.4-8.2)
[2023-02-26 13:01] LABS: BILIRUBIN,URINE NEGATIVE (NEGATIVE); CLARITY,URINE CLEAR; COLOR,URINE YELLOW; GLUCOSE, URINE (UA) NEGATIVE (NEGATIVE); KETONES,URINE NEGATIVE (NEGATIVE); LEUKOCYTE ESTERASE ,URINE NEGATIVE (NEGATIVE); NITRITE,URINE NEGATIVE (NEGATIVE); PROTEIN,URINE NEGATIVE (NEGATIVE)
[2023-02-26 13:08] LABS: BACTERIA,URINE NEGATIVE /HPF; SQUAMOUS EPITHELIAL CELL,UR RARE /HPF; WBC,URINE 0-2 /HPF
[2023-02-26] MEDS ORDERED: FAMOTIDINE 20MG/2ML IV (PEPCID) IV STA (13:13)
[2023-02-26] MEDS ORDERED: LIDOCAINE 2% VISCOUS 15 ML UDC PO ONE (13:15)
[2023-02-26] MEDS ORDERED: ANTACID SUSP 30 ML UDC (MYLANTA) PO ONE (13:15)
[2023-02-26] MEDS ORDERED: HYOSCYAMINE 0.125 MG (LEVSIN) TAB PO ONE (13:45)
--- NOTE | 2023-02-26 13:51 | Diagnostic Imaging Report ---
INDICATION: Epigastric pain. COMPARISON: None. FINDINGS: Supine and upright views the abdomen demonstrate nonobstructive small bowel gas pattern. Moderate amount of air and stool are seen scattered throughout the colon. No abnormal air-fluid levels or large collection of free intraperitoneal air is seen. No abnormal extraosseous calcifications or radiopaque foreign bodies are identified. Bony structures are age-appropriate. IMPRESSION: 1. Nonobstructive small bowel gas pattern. 2. Moderate colonic air and stool. Please correlate for constipation. Dictated by: Dictated on workstation # [id number]
[2023-02-26 14:08] VITALS: BP 129/73
== END 2023-02-26 14:19 | disposition home or self-care (01) ==
LOC: EDUNIT# 12:13 → ER FS 12:15
DX: K29.70 Gastritis, unspecified, without bleeding (principal); K59.00 Constipation, unspecified; Z28.310 Unvaccinated for COVID-19
CPT/HCPCS: 36415; 74019; 80053; 81000; 83690; 85025; 86141

== ENCOUNTER 2023-07-07 07:16 | Emergency (ER) | payer MEDICAID ==
--- NOTE | 2023-07-07 07:27 | ED Cardiac General ---
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 Pt had a frozen foods manager appointment yesterday with Dr Madrid at [facility]. Pt was not feeling this way at that time. Pt takes baby aspirin, but otherwise not on a bloodthinner. Denies palpitations, headache, dizziness, fever/ chills, URI symptoms, cough, recent illness, strenuous exercise. Allergies and Home Medications Allergies Coded Allergies: No Known Drug Allergies (Unverified , 06/21/19) Patient Home Medication List Home Medication List Reviewed: Yes Amoxicillin/Potassium Clav (Augmentin 875-125 Tablet) 1 Each Tablet, 1 EACH PO BID Prescribed by: BERHANE VLILAR on 11/12/21 0618 Aspirin (Aspirin) 325 Mg Tablet, 325 MG PO DAILY Prescribed by: EUSEBIO MURILLO on 06/22/19 1435 Diltiazem HCl (Cardizem Cd) 120 Mg Cap.er.24h, 120 MG PO DAILY Prescribed by: BLAYNE MENDOZA on 07/22/19 1027 Hydrocodone Bit/Acetaminophen (HYDROcodone/APAP 5 MG/325 MG TAB) 1 Tab Tab, 1 TAB PO Q8H PRN for PAIN-SEVERE (8-10) Prescribed by: BERHANE VILLAR on 11/12/21 0618 Ondansetron (Ondansetron Odt) 4 Mg Tab.rapdis, 4 MG PO Q6H PRN for NAUSEA/VOMITING Prescribed by: OMAR VAZQUEZ on 04/15/22 2007 Review of Systems Review of Systems Constitutional: see HPI, malaise EENTM: No Symptoms Reported Respiratory: See HPI Cardiovascular: See HPI, Other Gastrointestinal: No Symptoms Reported Genitourinary: No Symptoms Reported Skin: no symptoms reported Psychiatric/Neurological: No Symptoms Reported Endocrine: No Symptoms Reported Hematologic/Lymphatic: No Symptoms Reported Past Lslrbyr-Vqvdmo-Ekyrll Hx Immunizations Up To Date First/Initial COVID19 Vaccinat: Not currently vaccinated Second COVID19 Vaccination Wilmer: Not currently vaccinated Third COVID19 Vaccination Date: Not currently vaccinated Seasonal Allergies Seasonal Allergies: No Past Medical History Surgery/Hospitalization HX: Atrial fibrillation, Pacemaker, Surgeries: Yes Pacemaker Cardiac: Yes ("tachy-samson syndrome": arrhythmia hx "heart pounding" in past) Atrial Fibrillation, Irregular Heartbeat Neurological: No Genitourinary: No Gastrointestinal: No Musculoskeletal: No Endocrine: No HEENT: No Cancer: No Did You Recieve Any Treatments: No Psychosocial: No (denies) Integumentary: No Blood Disorders: No Family Medical History No Pertinent Family Hx Physical Exam Vital Signs Vital Signs - First Documented 07/07/23 07:22 Temp 36.8 Pulse 67 Resp 12 B/P (MAP) 125/82 (96) Pulse Ox 98 O2 Delivery Room Air Capillary Refill : Height, Weight, BMI Height: 6'3.00" Weight: 161lbs. 2.0oz. 73.044147jp; 21.00 BMI Method:Stated General Appearance: Other HEENT: PERRL/EOMI, Normal ENT Inspection Neck: Full Range of Motion, Normal Inspection, Non Tender Respiratory: Chest Non Tender, Lungs Clear, Normal Breath Sounds, No Accessory Muscle Use Cardiovascular: Regular Rate, Rhythm, No Edema Gastrointestinal: Normal Bowel Sounds, Non Tender, Soft Neurologic/Psychiatric: Alert, Oriented x3, No Motor/Sensory Deficits, Normal Mood/Affect, acute care surgeon II-XII Norm as Tested Skin: Normal Color Lymphatic: No Adenopathy Focused Exam Lactate Level 07/07/23 07:36: Lactic Acid Level 1.22 Lactic Acid Level Laboratory Tests Test 07/07/23 07:36 Lactic Acid Level 1.22 MMOL/L (0.50-2.00) Progress/Results/Core Measures Results/Orders Lab Results Laboratory Tests Test 07/07/23 07:36 Range/Units White Blood Count 6.2 4.3-11.0 10^3/uL Red Blood Count 5.58 H 4.30-5.52 10^6/uL Hemoglobin 17.6 13.3-17.7 g/dL Hematocrit 50 40-54 % Mean Corpuscular Volume 89 80-99 fL Mean Corpuscular Hemoglobin 32 25-34 pg Mean Corpuscular Hemoglobin Concent 36 32-36 g/dL Red Cell Distribution Width 12.1 10.0-14.5 % Platelet Count 198 130-400 10^3/uL Mean Platelet Volume 10.3 9.0-12.2 fL Immature Granulocyte % (Auto) 0 % Neutrophils (%) (Auto) 54 42-75 % Lymphocytes (%) (Auto) 31 12-44 % Monocytes (%) (Auto) 11 0-12 % Eosinophils (%) (Auto) 2 0-10 % Basophils (%) (Auto) 1 0-10 % Neutrophils # (Auto) 3.4 1.8-7.8 10^3/uL Lymphocytes # (Auto) 1.9 1.0-4.0 10^3/uL Monocytes # (Auto) 0.7 0.0-1.0 10^3/uL Eosinophils # (Auto) 0.2 0.0-0.3 10^3/uL Basophils # (Auto) 0.1 0.0-0.1 10^3/uL Immature Granulocyte # (Auto) 0.0 0.0-0.1 10^3/uL Sodium Level 140 135-145 MMOL/L Potassium Level 4.6 3.6-5.0 MMOL/L Chloride Level 104 98-107 MMOL/L Carbon Dioxide Level 24 21-32 MMOL/L Anion Gap 12 5-14 MMOL/L Blood Urea Nitrogen 12 7-18 MG/DL Creatinine 1.02 0.60-1.30 MG/DL Estimat Glomerular Filtration Rate 99 BUN/Creatinine Ratio 12 Glucose Level 100 70-105 MG/DL Lactic Acid Level 1.22 0.50-2.00 MMOL/L Calcium Level 9.2 8.5-10.1 MG/DL Corrected Calcium 9.0 8.5-10.1 MG/DL Magnesium Level 2.2 1.6-2.4 MG/DL Total Bilirubin 0.6 0.1-1.0 MG/DL Aspartate Amino Transf (AST/SGOT) 18 5-34 U/L Alanine Aminotransferase (ALT/SGPT) 15 0-55 U/L Alkaline Phosphatase 81 40-136 U/L Troponin I < 0.30 <0.30 NG/ML Pro-B-Type Natriuretic Peptide 191.2 H <125.0 PG/ML Total Protein 6.9 6.4-8.2 GM/DL Albumin 4.3 3.2-4.5 GM/DL Serum Alcohol < 10 <10 MG/DL My Orders Orders - RAMONE DUCKWORTH MD Continuous Ekg Monitoring (07/07/23 07:28) Ekg Tracing (07/07/23 07:28) Chest 1 View Ap/Pa Only (07/07/23 07:28) Alcohol (07/07/23 07:28) Cbc With Automated Diff (07/07/23 07:28) Comprehensive Metabolic Panel (07/07/23 07:28) Fibrin Degradation Products (07/07/23 07:28) Drug Screen Stat (Urine) (07/07/23 07:28) Lactic Acid Analyzer (07/07/23 07:28) Magnesium (07/07/23 07:28) Protime With Inr (07/07/23:28) Partial Thromboplastin Time (07/07/23 07:28) Ua Culture If Indicated (07/07/23 07:28) Probnp Fs (07/07/23 07:28) Troponin I Fs (07/07/23 07:28) Ed Iv/Invasive Line Start (07/07/23 08:43) 1/2 Ns Iv Solution 1000 Ml (1/2 Ns Iv So (07/07/23 08:43) Vital Signs/I&O 07/07/23 07:22 Temp 36.8 Pulse 67 Resp 12 B/P (MAP) 125/82 (96) Pulse Ox 98 O2 Delivery Room Air Progress Progress Note : Progress Note 1. FATIGUE & CHEST DISCOMFORT: - CXR: The tips of the leads are in stable position, although the right ventricular lead appears flipped superiorly when compared to 2019. Large lung volumes with no acute pulmonary abnormality. - EKG: paced rhythm - Troponin: undetected - D-dimer: negative - CBC/ CMP: unremarkable - UA/ UDS: did not give urine sample - Pt has a [employer] pacemaker - Discussed with cardiology consult via phone Dr Werner, and advised there is no cardiac reason for admission. - Pt just saw his frozen foods manager yesterday , Dr Madrid - ER nurse called pt's cardiology office and they advised one of two options: wait for a pacemaker rep to come here , or pt can send pacemaker reading from home to the office. Pt opted to go home and send the info. - 1/2 NS 500ml given in ER - Pt feels better - Advised to follow up with PCP and cardiology within the next 7 days -The patient was seen in the ED, and treated appropriately to presentation at a specific point in time. Patient is informed that there is a possibility that disease and illness can evolve and change in acuity rapidly or slowly after patient is discharged from the ER. Precautionary advice given to the patient for immediate return to ER if symptoms worsen or do not resolve, and to seek emergency care sooner rather than later. Pt also advised on the importance of PCP follow up and compliance with management and follow up plan with PCP and/or specialist, as this is part of the management plan. Pt verbally expressed understanding. Initial ECG Impression Date: Jul 07, 2023 Initial ECG Impression Time: 07:28 Initial ECG Rate: 66 Initial ECG Rhythm: Normal Sinus (Pace) Initial ECG Intervals: Normal Initial ECG Intervals Paced rhythm Initial ECG Impression: Normal Initial ECG Comparisson: No Previous ECG Available Diagnostic Imaging Diagonstic Imaging: Xray Plain Films/CT/US/NM/MRI: chest Comments [facility], [place] NAME: LUIS ARMANDO [facility] REC#: [id number] PT STATUS: REG ER : 1990 PHYSICIAN: RAMONE DUCKWORTH MD ADMIT DATE: 07/07/23/ER FS Draft Date of Exam:07/07/23 CHEST 1 VIEW AP/PA ONLY History: Chest discomfort TECHNIQUE: Frontal view the chest COMPARISON: 07/21/2019 FINDINGS: Lung volumes are large. No consolidation is seen. There is no pleural effusion or pneumothorax. The cardiac silhouette is normal in size. Right-sided pacemaker is noted. The tips of the leads are in stable position, although the right ventricular lead appears flipped superiorly when compared to 2019. IMPRESSION: 1. Large lung volumes with no acute pulmonary abnormality. 2. Slight change in course of the pacemaker right ventricular lead compared to 2019, but the tips of the leads appear stable in position. Dictated on workstation # [id number] Dict: 07/07/23804 Trans: 07/07/2315 ROJAS [id number] Interpreted by: VERONICA HAN MD Electronically signed by: Departure Impression Primary Impression: Fatigue Qualified Codes: R53.83 - Other fatigue Additional Impression: Samson-tachy syndrome Disposition: 01 HOME, SELF-CARE Condition: Stable Departure-Patient Inst. Referrals: DESHAUN SANCHEZ APRN (PCP) Primary Care Physician [facility] (Family) Primary Care Physician Patient Instructions: Fatigue, Heart Healthy Diet Add. Discharge Instructions: - Advised patient to send pacemaker readings to cardiology office soon as patient reaches home - Advised to follow up with PCP and cardiology within the next 7 days All discharge instructions reviewed with patient and/or family. Voiced understanding. Work/School Note: Work Release Form Date Seen in the Emergency Department: Jul 07, 2023 Return to Work: Jul 09, 2023 Restrictions: No Restrictions RAMONE DUCKWORTH MD Jul 07, 2023 07:27
[2023-07-07 07:43] LABS: BASOPHILS # (AUTO) 0.1 10^3/uL (0.0-0.1); BASOPHILS % (AUTO) 1 % (0-10); EOSINOPHILS # (AUTO) 0.2 10^3/uL (0.0-0.3); EOSINOPHILS % (AUTO) 2 % (0-10); HEMATOCRIT 50 % (40-54); HEMOGLOBIN 17.6 g/dL (13.3-17.7); LYMPHOCYTES # (AUTO) 1.9 10^3/uL (1.0-4.0); LYMPHOCYTES % (AUTO) 31 % (12-44); MEAN CORPUSCULAR HEMOGLOBIN 32 pg (25-34); MEAN CORPUSCULAR HGB CONC 36 g/dL (32-36); MEAN CORPUSCULAR VOLUME 89 fL (80-99); MEAN PLATELET VOLUME 10.3 fL (9.0-12.2); MONOCYTES # (AUTO) 0.7 10^3/uL (0.0-1.0); MONOCYTES % (AUTO) 11 % (0-12); NEUTROPHILS # (AUTO) 3.4 10^3/uL (1.8-7.8); NEUTROPHILS % (AUTO) 54 % (42-75); PLATELET COUNT 198 10^3/uL (130-400); WHITE BLOOD COUNT 6.2 10^3/uL (4.3-11.0)
--- NOTE | 2023-07-07 08:15 | Diagnostic Imaging Report ---
History: Chest discomfort TECHNIQUE: Frontal view the chest COMPARISON: 07/21/2019 FINDINGS: Lung volumes are large. No consolidation is seen. There is no pleural effusion or pneumothorax. The cardiac silhouette is normal in size. Right-sided pacemaker is noted. The tips of the leads are in stable position, although the right ventricular lead appears flipped superiorly when compared to 2019. IMPRESSION: 1. Large lung volumes with no acute pulmonary abnormality. 2. Slight change in course of the pacemaker right ventricular lead compared to 2019, but the tips of the leads appear stable in position. Dictated by: Dictated on workstation # [id number]
[2023-07-07 08:23] LABS: BUN/CREATININE RATIO 12; CALCIUM 9.2 MG/DL (8.5-10.1); CARBON DIOXIDE 24 MMOL/L (21-32); CHLORIDE 104 MMOL/L (98-107); CREATININE SERUM 1.02 MG/DL (0.60-1.30); GFR ESTIMATED 99; GLUCOSE 100 MG/DL (70-105); MAGNESIUM 2.2 MG/DL (1.6-2.4); POTASSIUM 4.6 MMOL/L (3.6-5.0); SODIUM 140 MMOL/L (135-145)
[2023-07-07 08:24] LABS: ALANINE AMINOTRANSFERASE 15 U/L (0-55); ALBUMIN 4.3 GM/DL (3.2-4.5); ALKALINE PHOSPHATASE 81 U/L (40-136); BILIRUBIN,TOTAL 0.6 MG/DL (0.1-1.0); TOTAL PROTEIN 6.9 GM/DL (6.4-8.2)
[2023-07-07] MEDS ORDERED: 1/2 NS IV SOLUTION 1000 ML 1,000 ML IV STA (08:43)
[2023-07-07 08:56] LABS: FIBRIN DEGRADATION PRODUCTS 0.18 UG/ML (0.00-0.49); INR 0.9 (0.8-1.4); PROTHROMBIN TIME PATIENT 13.1 SEC (12.2-14.7)
[2023-07-07 09:25] VITALS: BP 127/68
== END 2023-07-07 09:25 | disposition home or self-care (01) ==
LOC: EDUNIT# 07:16 → ER FS 07:17
DX: I49.5 Sick sinus syndrome (principal); Z28.310 Unvaccinated for COVID-19
CPT/HCPCS: 36415; 71045; 80053; 83605; 83735; 83880; 84484; 85025; 85379; 85610; 85730; 93005; 99284; G0480; 80320